=== PATIENT | male | born 1975 | race Caucasian/White ===

== ENCOUNTER → 2019-07-17 12:06 | Outpatient (CLI) | payer OTHER, MEDICAID, SELFPAY ==
[2019-07-17 13:21] LABS: Alanine Aminotransferase 149 IU/L (<50); Albumin 4.1 g/dL (3.5-5.0); Albumin Globulin Ratio 1.1 (1.0-2.8); Alkaline Phosphatase 114 U/L (38-126); Aspartate Aminotransferase 112 IU/L (17-59); BUN Creatinine Ratio 18.8 (6-22); Bilirubin Total 0.3 mg/dL (0.2-1.3); Blood Urea Nitrogen 15 mg/dL (9-20); Calcium 9.2 mg/dL (8.4-10.2); Carbon Dioxide 31 mmol/L (22-32); Chloride 100 mmol/L (98-107); Estimated Glomerular Filt Rate > 60.0 mL/min (>60); Globulin 3.6 g/dL (1.7-4.1); Glucose 118 mg/dL (70-100); HEMOLYSIS < 15 (0-50); Sodium 138 mmol/L (137-145); Total Protein 7.7 g/dL (6.3-8.2)
[2019-07-17 16:53] LABS: Hepatitis B Surface Antigen NEGATIVE s/c (NEGATIVE)
[2019-07-17 17:32] LABS: Hep C Virus Ab w/Reflex Quant REACTIVE s/c (NEGATIVE)
[2019-07-21 15:22] LABS: Hepatitis B Core Antibody Nonreactive (Nonreactive)
[2019-07-21 15:25] LABS: Hepatitis A Antibody Total Reactive (Nonreactive)
[2019-07-21 15:26] LABS: Hepatitis B Surf AB Imm QUANT 11 mIU/mL (> 9)
== END ==
PROVIDERS: Visit Provider Nurse Practitioner Family
DX: F11.20 Opioid dependence, uncomplicated (principal); Z79.899 Other long term (current) drug therapy
CPT/HCPCS: 36415; 80053; 86704; 86706; 86708; 86803; 87340; 87522

== ENCOUNTER → 2020-10-25 12:16 | Outpatient (CLI) | payer OTHER, MEDICAID, SELFPAY ==
[2020-10-25 15:40] LABS: Add Manual Diff / Slide Review NO; Basophils Absolute Auto 0 /uL (0-100); Basophils Percent Auto 0.3 % (0-2); Eosinophils Absolute Auto 500 /uL (0-450); Eosinophils Percent Auto 5.7 % (2-4); Hematocrit 37.2 % (41-53); Hemoglobin 12.4 g/dL (13.5-17.5); Lymphocytes Absolute Auto 2400 /uL (1100-4500); Lymphocytes Percent Auto 30.5 % (25-40); Mean Corpuscular HGB Conc 33.4 % (30-36); Mean Corpuscular Hemoglobin 29.6 PG (26-34); Mean Corpuscular Volume 88.6 fL (80-100); Monocytes Absolute Auto 900 /uL (0-900); Monocytes Percent Auto 10.9 % (3-14); Neutrophils Absolute Auto 4100 /uL (1500-7000); Neutrophils Percent Auto 52.6 % (50-75); Platelet Count 208 X10^3/uL (150-400); Red Cell Distribution Width 14.1 % (11.6-14.8); White Blood Cell Count 7.9 X10^3/uL (4.5-11.0)
[2020-10-25 15:52] LABS: Alanine Aminotransferase 156 IU/L (<50); Albumin 4.3 g/dL (3.5-5.0); Albumin Globulin Ratio 1.3 (1.0-2.8); Alkaline Phosphatase 70 U/L (38-126); Aspartate Aminotransferase 197 IU/L (17-59); BUN Creatinine Ratio 17.9 (6-22); Bilirubin Total 0.4 mg/dL (0.2-1.3); Blood Urea Nitrogen 15 mg/dL (9-20); Calcium 9.3 mg/dL (8.4-10.2); Carbon Dioxide 29 mmol/L (22-32); Chloride 101 mmol/L (98-107); Estimated Glomerular Filt Rate > 60.0 mL/min (>60); Globulin 3.3 g/dL (1.7-4.1); Glucose 100 mg/dL (70-100); HEMOLYSIS 37 (0-50); Potassium 3.8 mmol/L (3.4-5.1); Sodium 134 mmol/L (137-145); Total Protein 7.6 g/dL (6.3-8.2)
[2020-10-25 15:57] LABS: HEMOLYSIS < 15 (0-50); Iron 84 ug/dL (49-181)
[2020-10-25 16:08] LABS: Percent Iron Saturation 24 % (20-50); Total Iron Binding Capacity 354 ug/dL (261-462); Transferrin 259 mg/dL (206-381)
[2020-10-25 16:12] LABS: Vitamin D 25 Hydroxy (D3) 29.4 ng/mL (30.0-100.0)
[2020-10-25 16:24] LABS: Ferritin 58 ng/mL (18-464)
[2020-10-26 04:36] LABS: Hepatitis A Antibody Total Positive (Negative); Hepatitis B Core Antibody Negative (Negative); Hepatitis B Surf AB Quant 13.1 mIU/mL (Immunity>9.9)
[2020-10-26 08:30] LABS: RPR Screen Non Reactive (Non Reactive)
[2020-10-27 16:08] LABS: Hepatitis B Surface Antigen NEGATIVE s/c (NEGATIVE)
[2020-10-27 16:35] LABS: Hep C Virus Ab w/Reflex Quant REACTIVE s/c (NEGATIVE)
[2020-11-01 11:29] LABS: HCV Genotype 1a (.); HCV LOG 10 5.852 (.)
== END ==
PROVIDERS: Referring Provider Nurse Practitioner Family; Visit Provider Nurse Practitioner Family
DX: R94.8 Abnormal results of function studies of other organs and systems (principal); B18.2 Chronic viral hepatitis C; R53.81 Other malaise
CPT/HCPCS: 36415; 80053; 81596; 82306; 82728; 83540; 83550; 85025; 86592; 86704; 86706; 86708; 86803; 87340; 87522; 87902

== ENCOUNTER 2022-03-07 08:03 | Inpatient (IN) | payer OTHER, MEDICAID, SELFPAY ==
[2022-03-07] VITALS (15 sets, daily range): BP systolic 107–160; BP diastolic 63–99; PULSE 70–100; RESP 18–32; TEMP 36.3–37.1; O2SAT 91–98; BMI 30.4
--- NOTE | 2022-03-07 08:33 | DI.RAD.S_ITS ---
PROCEDURE: XR CHEST 2V INDICATIONS: SOB TECHNIQUE: 2 views of the chest were acquired. COMPARISON: [facility], , CHEST 2VW, 06/04/2013, 8:51. FINDINGS: Surgical changes and devices: None. Lungs and pleura: Consolidation in the left lung base. Small left-sided pleural fluid collection. Mediastinum: Mediastinal contours are normal. Heart size is normal. Bones and chest wall: No suspicious bony abnormalities. Soft tissues appear unremarkable. IMPRESSION: Left basilar pneumonia with small parapneumonic effusion. Recommend follow-up imaging to resolution of the left lung findings to exclude underlying neoplastic process. Dictated by: Fadia Holley MD, PhD on 03/07/2022 at 9:01 Approved by: Fadia Holley MD, PhD on 03/07/2022 at 9:02
--- NOTE | 2022-03-07 09:04 | ED.SOB ---
HPI - SOB/Dyspnea General Chief Complaint: Shortness of Breath/Dyspnea Stated Complaint: Coughing up blood Time Seen by Provider: 03/07/22 08:24 Source: patient and family Mode of arrival: Ambulatory Limitations: no limitations History of Present Illness HPI Narrative: 46-year-old male daily smoker with prior history of pneumonia and chronic pain presents from the methadone clinic and a chief complaint of shortness of breath, productive cough with bloody sputum and chest pain for the past few days. On arrival he had pulse ox of 90% on room air and was quickly placed on 3 L. he is vaccinated against COVID. He was not treated at the methadone clinic but sent here instead. He is felt feverish and chilled, but has not measured his temperature. His chest pain is sharp and stabbing and worse with cough and largely on the left side of his chest. He is had no nausea, vomiting or diarrhea. He denies any recent travel or injury in his never had a blood clot. Related Data Allergies Allergy/AdvReac Type Severity Reaction Status Date / Time No Known Allergies AdvReac Verified 03/07/22 13:26 Review of Systems Review of Systems Narrative: GENERAL: See HPI HEENT: Denies sinus pain, ear pain, sore throat, difficulty swallowing, dizziness. RESPIRATORY: See HPI CARDIOVASCULAR: See HPI GASTROINTESTINAL: Denies nausea, vomiting, abdominal pain, diarrhea, constipation, melena. : Denies dysuria, frequency, incontinence, hematuria, urinary retention. MUSCULOSKELETAL: denies weakness, joint pain, or bony pain SKIN: Denies rash, skin lesions, or other NEUROLOGIC: Denies weakness, headache, numbness, change in speech, confusion, seizures, incoordination. PSYCHIATRIC: No concerning psychosocial issues. 12 point review of systems is negative except for those stated above Patient History Medical History Drug abuse, IV Hepatitis C History of bacterial pneumonia Marijuana use Smoker Family History (Updated 03/07/22 @ 15:04 by Maria Guadalupe Finney MD) Father Cancer Social History household members: none Smoking Status: Current every day smoker Smoking Status: Current every day smoker alcohol intake frequency: holidays/special occasions only Substance Use Type: marijuana Exam Narrative Exam Narrative: GENERAL: [46] year old patient appears stated age. Well-developed patient, in mild distress. HEAD: Atraumatic. Normocephalic. EYES: Pupils equal round and reactive. Extraocular motions intact. No scleral icterus. No injection or drainage. ENT: Nose without bleeding, purulent drainage. Throat without erythema, tonsillar hypertrophy or exudate. Airway patent. NECK: Trachea midline. Non tender CARDIOVASCULAR: Regular rate and rhythm without murmurs, gallops, or rubs. RESPIRATORY: Clear to auscultation. Breath sounds equal bilaterally. No wheezes, rales, or rhonchi. GASTROINTESTINAL: Abdomen soft, non-tender, nondistended. EXTREMITIES: No edema or joint tenderness. BACK: Nontender without deformity or crepitance. No flank tenderness. NEURO: AOx3. SKIN: No rash or erythema of visible areas Initial Vital Signs Initial Vital Signs: Vital Signs Temperature 98.6 F 03/07/22 08:30 Pulse Rate 97 H 03/07/22 08:30 Respiratory Rate 18 03/07/22 08:30 Blood Pressure 129/76 03/07/22 08:30 Pulse Oximetry 94 03/07/22 08:30 Oxygen Delivery Method 03/07/22 08:30 Oxygen Flow Rate 3 03/07/22 08:30 Scores CURB-65 Confusion: No BUN >19mg/dL (>7mmol/L): No Respiratory rate greater or equal to 30: No SBP <90mmHg or DBP less or equal to 60mmHg: No Age 65 or Older: No CURB-65 Total: 0 Score 0-1 Outpatient care, Score 2 Inpt vs. Obs, Score 3 or over Inpt admit with ICU for score of 4-5 Course Orders Ordered: ED Orders 03/07/22 09:39 Arterial Blood Gas Stat Urinalysis and Microscopic Stat 03/07/22 09:49 COVID19 -Nasal RAPID/Pre-Proc Routine 03/07/22 10:02 XR chest for PICC 1V Stat 03/07/22 10:32 C-Reactive Protein Quant Stat Comprehensive Metabolic Panel Stat D Dimer Stat Lactate (Lactic Acid) Stat NT-proBNP (BNP-Adult 18+) Stat Procalcitonin Stat Troponin & CK Cardiac Panel Stat 03/07/22 14:10 Blood Culture Stat Acetaminophen (Acetaminophen 325 Mg Tablet) 650 mg PO Q6HR PRN PRN Reason: Fever Al Hydrox/Mg Hydrox/Simethicone (Mag Hydrox/Alum/Simeth 30 Ml Udc) 30 ml PO Q6HR PRN PRN Reason: Dyspepsia Bisacodyl (Bisacodyl 10 Mg Supp) 10 mg RI DAILY PRN PRN Reason: Constipation Enoxaparin Sodium (Enoxaparin 40 Mg/0.4 Ml Syringe) 40 mg SUBCUT DAILY [facility] Hydromorphone HCl (Hydromorphone 1 Mg Inj) 1 mg IV Q3H PRN PRN Reason: Pain, Moderate (4-6) Last Admin: 03/07/22 13:20 Dose: 1 mg Documented By: LARA Dextrose/Sodium Chloride (Dextrose 5%-0.9% Ns) 1,000 mls @ 100 mls/hr IV CONT ANDER Last Admin: 03/07/22 17:05 Dose: 100 mls/hr Documented By: MICHAEL Piperacillin Sod/Tazobactam (Sod 4.5 gm/ Sodium Chloride) 100 mls @ 25 mls/hr IV Q8H [facility] Last Admin: 03/07/22 17:06 Dose: 25 mls/hr Documented By: MICHAEL Vancomycin HCl/Dextrose (Vancomycin) 1,500 mg in 300 mls @ 200 mls/hr IV Q8H [facility] Nicotine (Nicotine 7 Mg Patch) 7 mg TOP DAILY [facility] Nicotine (Nicotine 21 Mg Patch) 21 mg TOP DAILY [facility] Ondansetron HCl (Ondansetron 4 Mg/2 Ml Inj) 4 mg IV Q8HR PRN PRN Reason: Nausea And Vomiting Oxycodone HCl (Oxycodone Ir 10 Mg Tablet) 10 mg PO Q4HR PRN PRN Reason: Pain, Severe (7-10) Last Admin: 03/07/22 17:04 Dose: 10 mg Documented By: MICHAEL Vancomycin HCl (Vancomycin Trough) 1 request [facility] [place] 1630 [facility] Stop: 03/08/22 16:31 Vancomycin HCl (Vancomycin Peak) 1 request [facility] [place] 1930 [facility] Stop: 03/08/22 19:31 Discontinued Medications Sodium Chloride (Normal Saline 0.9%) 1,000 mls @ 1,000 mls/hr IV BOLUS ONE Stop: 03/07/22 09:31 Last Infusion: 03/07/22 12:39 Dose: 0 mls/hr Documented By: Admin: 03/07/22 10:32 Dose: 1,000 mls/hr Documented By: NYLA(2) Ceftriaxone Sodium 2,000 mg/ (Sodium Chloride) 100 mls @ 200 mls/hr IV NOW ONE Stop: 03/07/22 09:12 Last Infusion: 03/07/22 11:06 Dose: 0 mls/hr Documented By: NYLA(2) Admin: 03/07/22 10:31 Dose: 200 mls/hr Documented By: NYLA(2) Azithromycin 500 mg/ Dextrose 250 mls @ 250 mls/hr IV NOW ONE Stop: 03/07/22 09:12 Last Infusion: 03/07/22 12:34 Dose: 0 mls/hr Documented By: Admin: 03/07/22 10:31 Dose: 250 mls/hr Documented By: NYLA(2) Sodium Chloride (Normal Saline 0.9%) 2,052 mls @ 684 mls/hr 30 ml/kg infuse over 3 hr (2052 ml) IV NOW ONE Stop: 03/07/22 14:14 Last Infusion: 03/07/22 13:04 Dose: 0 mls/hr Documented By: Admin: 03/07/22 11:46 Dose: 684 mls/hr Documented By: NYLA Vancomycin HCl (Vancomycin) 1,000 mg in 200 mls @ 200 mls/hr IV Q24H ANDER Methadone HCl (Methadone 10 Mg Tablet) 110 mg PO NOW ONE Stop: 03/07/22 09:31 Last Admin: 03/07/22 10:31 Dose: 110 mg Documented By: NYLA(2) Methadone HCl (Methadone 5 Mg Tablet) 2.5 mg PO NOW ONE Stop: 03/07/22 09:31 Last Admin: 03/07/22 10:31 Dose: 2.5 mg Documented By: NYLA(2) Nicotine (Nicotine 7 Mg Patch) 7 mg TOP NOW ONE Stop: 03/07/22 13:57 Last Admin: 03/07/22 15:29 Dose: Not Given Documented By: LARA Potassium Chloride (Potassium Chloride 20 Meq/15 Ml Udc) 40 meq PO NOW ONE Stop: 03/07/22 11:16 Last Admin: 03/07/22 11:40 Dose: 40 meq Documented By: NYLA Vital Signs Vital signs: Vital Signs - 8 hr 03/07/22 10:30 03/07/22 10:30 03/07/22 10:35 Pulse Rate 70 84 Blood Pressure 125/73 Pulse Oximetry 98 03/07/22 10:57 03/07/22 11:00 03/07/22 11:02 Pulse Rate 87 Blood Pressure 122/66 114/63 Pulse Oximetry 96 03/07/22 11:30 03/07/22 11:30 Pulse Rate 88 Blood Pressure 115/69 Pulse Oximetry 92 MDM - SOB/Dyspnea Lab Data Result diagrams: 03/07/22 08:32 03/07/22 10:32 Labs: Lab Results 03/07/22 03/07/22 03/07/22 Range/Units 08:23 08:32 09:39 WBC 17.6 H (4.5-11.0) X10^3/uL RBC 5.37 (4.5-5.9) X10^6/uL Hgb 15.7 (13.5-17.5) g/dL Hct 46.0 (41-53) % MCV 85.5 (80-100) fL MCH 29.2 (26-34) PG MCHC 34.2 (30-36) % RDW 14.5 (11.6-14.8) % Plt Count 142 L (150-400) X10^3/uL Neut % (Auto) Not Reportable Lymph % (Auto) Not Reportable [place] % (Auto) Not Reportable Eos % (Auto) Not Reportable Baso % (Auto) Not Reportable Lymph # (Auto) Not Reportable [place] # (Auto) Not Reportable Baso # (Auto) Not Reportable Total Counted 100 Seg Neutrophils % 73.0 H (38-70) % Band Neutrophils % 20.0 H (3-7) % Lymphocytes % (Manual) 3.0 L (25-45) % Atypical Lymphs % 1.0 H ( - 0) % Monocytes % (Manual) 3.0 (2-11) % Neutrophils # (Manual) 54994 H (8329-6589) /uL RBC Morphology Normal morphology D-Dimer (<230) ng/mL ABG pH 7.48 H (7.35-7.45) ABG pCO2 43.2 (35-45) mmHg ABG pO2 63 L (80-100) mmHg ABG HCO3 32 H (22-26) mmol/L ABG Total CO2 33 H (21-31) mmol/L ABG O2 Saturation 93 L (95-100) % ABG Base Excess 9.0 H (-2-2) mmol/L FiO2 32 Sodium (137-145) mmol/L Potassium (3.4-5.1) mmol/L Chloride (98-107) mmol/L Carbon Dioxide (22-32) mmol/L BUN (9-20) mg/dL Creatinine (0.66-1.25) mg/dL Estimated GFR (>60) mL/min BUN/Creatinine Ratio (6-22) Glucose (70-100) mg/dL Lactate (0.7-2.1) mmol/L Calcium (8.4-10.2) mg/dL Total Bilirubin (0.2-1.3) mg/dL AST (17-59) IU/L ALT (<50) IU/L Alkaline Phosphatase (38-126) U/L Total Creatine Kinase (55-170) U/L CK-MB (CK-2) CK-MB (CK-2) Rel Index Troponin I (0.01-0.034) ng/mL NT-Pro-B Natriuret Pep (<125) pg/mL Total Protein (6.3-8.2) g/dL Albumin (3.5-5.0) g/dL Globulin (1.7-4.1) g/dL Albumin/Globulin Ratio (1.0-2.8) Procalcitonin (<0.5) ng/mL Urine Color Urine Appearance Urine pH (4.5-8.0) Ur Specific [place] (1.000-1.035) Urine Protein (Negative) Urine Glucose (UA) (Negative) g/dL Urine Ketones (NEGATIVE) Urine Occult Blood (Negative) Urine Nitrate (Negative) Urine Bilirubin (NEGATIVE) Urine Urobilinogen (0.2) E.U./dL Ur Leukocyte Esterase (NEGATIVE) Urine RBC (0-5/HPF) Urine WBC (0-5/HPF) Urine Bacteria (None) Ur Culture Indicated? Micro UA Comment SARS-CoV-2 (PCR) Cancelled 03/07/22 03/07/22 03/07/22 Range/Units 09:39 09:49 10:32 WBC (4.5-11.0) X10^3/uL RBC (4.5-5.9) X10^6/uL Hgb (13.5-17.5) g/dL Hct (41-53) % MCV (80-100) fL MCH (26-34) PG MCHC (30-36) % RDW (11.6-14.8) % Plt Count (150-400) X10^3/uL Neut % (Auto) Lymph % (Auto) [place] % (Auto) Eos % (Auto) Baso % (Auto) Lymph # (Auto) [place] # (Auto) Baso # (Auto) Total Counted Seg Neutrophils % (38-70) % Band Neutrophils % (3-7) % Lymphocytes % (Manual) (25-45) % Atypical Lymphs % ( - 0) % Monocytes % (Manual) (2-11) % Neutrophils # (Manual) (3428-4548) /uL RBC Morphology D-Dimer 1043 H (<230) ng/mL ABG pH (7.35-7.45) ABG pCO2 (35-45) mmHg ABG pO2 (80-100) mmHg ABG HCO3 (22-26) mmol/L ABG Total CO2 (21-31) mmol/L ABG O2 Saturation (95-100) % ABG Base Excess (-2-2) mmol/L FiO2 Sodium (137-145) mmol/L Potassium (3.4-5.1) mmol/L Chloride (98-107) mmol/L Carbon Dioxide (22-32) mmol/L BUN (9-20) mg/dL Creatinine (0.66-1.25) mg/dL Estimated GFR (>60) mL/min BUN/Creatinine Ratio (6-22) Glucose (70-100) mg/dL Lactate (0.7-2.1) mmol/L Calcium (8.4-10.2) mg/dL Total Bilirubin (0.2-1.3) mg/dL AST (17-59) IU/L ALT (<50) IU/L Alkaline Phosphatase (38-126) U/L Total Creatine Kinase (55-170) U/L CK-MB (CK-2) CK-MB (CK-2) Rel Index Troponin I (0.01-0.034) ng/mL NT-Pro-B Natriuret Pep (<125) pg/mL Total Protein (6.3-8.2) g/dL Albumin (3.5-5.0) g/dL Globulin (1.7-4.1) g/dL Albumin/Globulin Ratio (1.0-2.8) Procalcitonin (<0.5) ng/mL Urine Color Yellow Urine Appearance Clear Urine pH 6.5 (4.5-8.0) Ur Specific [place] 1.020 (1.000-1.035) Urine Protein 2+ H (Negative) Urine Glucose (UA) Trace H (Negative) g/dL Urine Ketones Negative (NEGATIVE) Urine Occult Blood Trace-lysed (Negative) Urine Nitrate Negative (Negative) Urine Bilirubin Negative (NEGATIVE) Urine Urobilinogen 2.0 H (0.2) E.U./dL Ur Leukocyte Esterase Negative (NEGATIVE) Urine RBC None seen (0-5/HPF) Urine WBC None seen (0-5/HPF) Urine Bacteria None seen (None) Ur Culture Indicated? Cult not indicated Micro UA Comment Microscopic normal SARS-CoV-2 (PCR) Negative 03/07/22 03/07/22 03/07/22 Range/Units 10:32 10:32 10:32 WBC (4.5-11.0) X10^3/uL RBC (4.5-5.9) X10^6/uL Hgb (13.5-17.5) g/dL Hct (41-53) % MCV (80-100) fL MCH (26-34) PG MCHC (30-36) % RDW (11.6-14.8) % Plt Count (150-400) X10^3/uL Neut % (Auto) Lymph % (Auto) [place] % (Auto) Eos % (Auto) Baso % (Auto) Lymph # (Auto) [place] # (Auto) Baso # (Auto) Total Counted Seg Neutrophils % (38-70) % Band Neutrophils % (3-7) % Lymphocytes % (Manual) (25-45) % Atypical Lymphs % ( - 0) % Monocytes % (Manual) (2-11) % Neutrophils # (Manual) (0066-6681) /uL RBC Morphology D-Dimer (<230) ng/mL ABG pH (7.35-7.45) ABG pCO2 (35-45) mmHg ABG pO2 (80-100) mmHg ABG HCO3 (22-26) mmol/L ABG Total CO2 (21-31) mmol/L ABG O2 Saturation (95-100) % ABG Base Excess (-2-2) mmol/L FiO2 Sodium 131 L (137-145) mmol/L Potassium 3.1 L (3.4-5.1) mmol/L Chloride 90 L (98-107) mmol/L Carbon Dioxide 32 (22-32) mmol/L BUN 16 (9-20) mg/dL Creatinine 0.69 (0.66-1.25) mg/dL Estimated GFR > 60 (>60) mL/min BUN/Creatinine Ratio 23.2 H (6-22) Glucose 128 H (70-100) mg/dL Lactate 2.3 H (0.7-2.1) mmol/L Calcium 8.6 (8.4-10.2) mg/dL Total Bilirubin 0.9 (0.2-1.3) mg/dL AST 30 (17-59) IU/L ALT 31 (<50) IU/L Alkaline Phosphatase 104 (38-126) U/L Total Creatine Kinase 33 L (55-170) U/L CK-MB (CK-2) TNP CK-MB (CK-2) Rel Index TNP Troponin I < 0.012 (0.01-0.034) ng/mL NT-Pro-B Natriuret Pep 92 (<125) pg/mL Total Protein 7.0 (6.3-8.2) g/dL Albumin 3.5 (3.5-5.0) g/dL Globulin 3.5 (1.7-4.1) g/dL Albumin/Globulin Ratio 1.0 (1.0-2.8) Procalcitonin 22.1 H (<0.5) ng/mL Urine Color Urine Appearance Urine pH (4.5-8.0) Ur Specific [place] (1.000-1.035) Urine Protein (Negative) Urine Glucose (UA) (Negative) g/dL Urine Ketones (NEGATIVE) Urine Occult Blood (Negative) Urine Nitrate (Negative) Urine Bilirubin (NEGATIVE) Urine Urobilinogen (0.2) E.U./dL Ur Leukocyte Esterase (NEGATIVE) Urine RBC (0-5/HPF) Urine WBC (0-5/HPF) Urine Bacteria (None) Ur Culture Indicated? Micro UA Comment SARS-CoV-2 (PCR) Imaging Data Chest x-ray: Radiologist's Impression: [address] [place] [address] XRay Report Signed Patient: Panda Purdy MR#: [id number] : 1975 Acct:[id number] Age/Sex: 46 / M Date of Service: 03/07/22 Loc: ED Accession Number: [id number] ?? Procedure: XR chest 2V Ordering Provider: Ubaldo Harris D.O. PROCEDURE:? XR CHEST 2V ? INDICATIONS:? SOB ? TECHNIQUE:? 2 views of the chest were acquired.? ? COMPARISON:? [facility], , CHEST 2VW, 06/04/2013, 8:51. ? FINDINGS:? ? Surgical changes and devices:? None.? ? Lungs and pleura:? Consolidation in the left lung base.? Small left-sided pleural fluid collection. ? Mediastinum:? Mediastinal contours are normal.? Heart size is normal.? ? Bones and chest wall:? No suspicious bony abnormalities.? Soft tissues appear unremarkable.? ? IMPRESSION:? Left basilar pneumonia with small parapneumonic effusion.? Recommend follow-up imaging to resolution of the left lung findings to exclude underlying neoplastic process. ? ? Dictated by: Fadia Holley MD, PhD on 03/07/2022 at 9:01 ? ? Approved by: Fadia Holley MD, PhD on 03/07/2022 at 9:02 ? [facility] Narrative Medical decision making narrative: 46-year-old male smoker presents with chest pain hemoptysis and shortness of breath, he is found to be hypoxemic with resting pulse ox of 90% on room air which improves with 3 L by nasal cannula. ABG notes PO2 of 63 on 3 L. Chest x-ray demonstrates left lower lobe pneumonia, patient has elevated white blood cell count and elevated lactate. Patient requires hospitalization for ongoing evaluation, treatment and stabilization of his illness. Discharge Plan Departure Patient Disposition: Admitted As Inpatient Clinical Impression: Left lower lobe pneumonia, Hypoxemia, Acute hypokalemia Admit Date/Time: 03/07/22 11:50 Admit Provider: Maria Guaadlupe Finney
[2022-03-07 10:00] LABS: PCO2 ABG 43.2 mmHg (35-45); pH ABG 7.48 (7.35-7.45)
[2022-03-07 10:01] LABS: HCO3 ABG 32 mmol/L (22-26); PO2 ABG 63 mmHg (80-100); TCO2 ABG 33 mmol/L (21-31)
[2022-03-07 10:02] LABS: Fractionated Inspired Oxygen 32; Oxygen Saturation ABG 93 % (95-100)
--- NOTE | 2022-03-07 10:02 | DI.RAD.S_ITS ---
PROCEDURE: XR CHEST FOR PICC 1V INDICATIONS: picc COMPARISON: [facility], CR, XR CHEST 2V, 03/07/2022, 8:28. FINDINGS: PICC was placed by the intravenous therapy team from the right side. Fluoroscopic spot film demonstrates the tip of PICC projecting to the area of mid SVC. Consolidation in the left lung base and small left-sided pleural fluid collection is stable compared to prior exam. IMPRESSION: Tip of PICC projects to the area of mid SVC. Dictated by: Fadia Holley MD, PhD on 03/07/2022 at 10:43 Approved by: Fadia Holley MD, PhD on 03/07/2022 at 10:43
[2022-03-07 10:14] LABS: COVID19 -Nasal RAPID Negative (Negative)
[2022-03-07] MEDS: AZITHROMYCIN 500 MG in DEXTROSE 5% IN WATER 250 ML 250 MG IV (10:31)
[2022-03-07] MEDS: cefTRIAXone 2,000 MG in SODIUM CHLORIDE 0.9% 100 ML 200 MG IV (10:31)
[2022-03-07] MEDS: METHADONE 5 MG TABLET 2.5 MG PO (10:31)
[2022-03-07] MEDS: METHADONE 10 MG TABLET 110 MG PO (10:31)
[2022-03-07] MEDS: SODIUM CHLORIDE 0.9% 1,000 ML 1000 ML IV (10:32)
[2022-03-07 10:43] LABS: Appearance Urine UA CLEAR; Bilirubin Urine UA NEGATIVE (NEGATIVE); Color Urine UA YELLOW; Glucose Urine UA TRACE g/dL (Negative); Ketones Urine UA NEGATIVE (NEGATIVE); Leukocyte Esterase Urine UA NEGATIVE (NEGATIVE); Nitrite Urine UA NEGATIVE (Negative); Occult Blood Urine UA TRACE-LYSED (Negative); Protein Urine UA 2+ (Negative); pH Urine UA 6.5 (4.5-8.0)
[2022-03-07 10:50] LABS: Bacteria Urine None Seen; Culture Indicated Urine Cult Not Indicated; RBC Urine None Seen (0-5/HPF); Urine Comments Microscopic Normal; WBC Urine None Seen (0-5/HPF)
[2022-03-07 11:00] LABS: Alanine Aminotransferase 31 IU/L (<50); Albumin 3.5 g/dL (3.5-5.0); Alkaline Phosphatase 104 U/L (38-126); Aspartate Aminotransferase 30 IU/L (17-59); BUN Creatinine Ratio 23.2 (6-22); Bilirubin Total 0.9 mg/dL (0.2-1.3); Blood Urea Nitrogen 16 mg/dL (9-20); Calcium 8.6 mg/dL (8.4-10.2); Carbon Dioxide 32 mmol/L (22-32); Chloride 90 mmol/L (98-107); Creatine Kinase 33 U/L (55-170); Estimated Glomerular Filt Rate > 60 mL/min (>60); Globulin 3.5 g/dL (1.7-4.1); Glucose 128 mg/dL (70-100); HEMOLYSIS < 15 (0-50); Lactate (Lactic Acid) 2.3 mmol/L (0.7-2.1); Potassium 3.1 mmol/L (3.4-5.1); Sodium 131 mmol/L (137-145)
[2022-03-07 11:04] LABS: D Dimer 1043 ng/mL (<230)
[2022-03-07 11:07] LABS: Hemoglobin 15.7 g/dL (13.5-17.5); Mean Corpuscular HGB Conc 34.2 % (30-36); Mean Corpuscular Hemoglobin 29.2 PG (26-34); Mean Corpuscular Volume 85.5 fL (80-100); Platelet Count 142 X10^3/uL (150-400); Red Blood Cell Count 5.37 X10^6/uL (4.5-5.9); Red Cell Distribution Width 14.5 % (11.6-14.8); White Blood Cell Count 17.6 X10^3/uL (4.5-11.0)
[2022-03-07 11:09] LABS: Add Manual Diff / Slide Review YES
[2022-03-07 11:12] LABS: NT-proBNP (BNP-Adult 18+) 92 pg/mL (<125); Troponin I < 0.012 ng/mL (0.01-0.034)
[2022-03-07 11:16] LABS: Procalcitonin 22.1 ng/mL (<0.5)
[2022-03-07 11:19] LABS: Neutrophils Absolute Manual 16368 /uL (3000-5900); RBC Morphology Normal Morphology; Total Cells Counted 100
[2022-03-07] MEDS: POTASSIUM CHLORIDE 20 MEQ/15 ML UDC 40 MEQ PO (11:40)
[2022-03-07] MEDS: SODIUM CHLORIDE 0.9% 2,052 ML 684 ML IV (11:46)
[2022-03-07 12:45] LABS: Reflexed Lactate in 2 Hours Y
--- NOTE | 2022-03-07 13:07 | DI.CT.S_ITS ---
PROCEDURE: CT ANGIO CHEST PE PROTOCOL INDICATIONS: chest pain hypoxia TECHNIQUE: After the administration of intravenous contrast, 2 mm thick sections acquired from the pulmonary apices to the posterior costophrenic angles. 3-dimensional maximum intensity projection (MIP) coronal and sagittal reformats were then acquired through the thorax. For radiation dose reduction, the following was used: automated exposure control, adjustment of mA and/or kV according to patient size. COMPARISON: [facility], CT, CHEST WITH CONTRAST, 06/11/2013, 13:53. [facility], CT, CT ABD PELVIS W CON, 05/11/2015, 12:42. FINDINGS: Image quality: Excellent. Pulmonary arteries: Pulmonary arteries are normal in size, and demonstrate no intraluminal filling defects to suggest central pulmonary embolism. Lungs and pleura: There is dense consolidation seen involving the majority of the left lower lobe. The proximal left lower lobe bronchus appears narrowed versus occluded. There is a small left-sided pleural effusion. The right lung appears clear. No pneumothorax is seen on either side. Mediastinum: Heart size is normal, without pericardial effusion. Enlarged mediastinal lymph nodes are seen, including an 18 x 13 mm subcarinal lymph node. Thoracic aorta is normal in caliber and enhancement. Esophagus is normal in caliber. There is a small hiatal hernia. Bones and chest wall: No suspicious bony lesions. Ribs and thoracic spine appear intact throughout. Age-appropriate bony degenerative changes are seen. Thyroid gland demonstrates no significant abnormality. No axillary or supraclavicular adenopathy. Abdomen: Incidental note is made of an accessory splenule along the hilum of the primary spleen. Visualized upper abdominal solid organs appear normal in the early arterial phase of enhancement. IMPRESSION: Negative for pulmonary embolism. Dense consolidation is seen involving the left lower lobe, with a narrowed versus partially occluded left lower lobe bronchus proximally. Enlarged mediastinal lymph nodes are seen, which are most likely reactive. Incidental note is made of: Small hiatal hernia Accessory splenule Dictated by: Keith Washington M.D. on 03/07/2022 at 13:02 Approved by: Keith Washington M.D. on 03/07/2022 at 13:06
[2022-03-07] MEDS: HYDROMORPHONE 1 MG INJ IV ×2 (13:20→21:11)
[2022-03-07 14:30] LABS: Lactate 2HR (Lactic Acid Rflx) 2.8 mmol/L (0.7-2.1)
--- NOTE | 2022-03-07 14:51 | P.HP_ITS ---
History of Present Illness History of Present Illness Date Patient Seen: 03/07/22 Time Patient Seen: 14:51 Chief complaint: Coughing up blood Narrative: The patient is a 46-year-old male with a history of IV substance abuse, hepatitis-C, current 22 pack year history of tobacco/nicotine dependence who presents to the hospital with abrupt onset of shortness of breath, cough, productive sputum with hemoptysis. The patient states his symptoms began 2 days ago. Cause of his worsening shortness of breath and cough he presented for evaluation. He does have a history of bacterial pneumonia about 7 years ago. He denies any nausea vomiting or diarrhea. He has had some chest pain associated with his cough. He has had no hematemesis melena or bright red blood per rectum. Patient denies any weight loss. He does report some night sweats. He had a PICC line placed in the ED. Patient reports significant chest pain since then. He underwent Chest Xray which confirmed Left Lower lobe consoidation. Patient had a CT of the Chest which demonstrated the following findgs: There is dense consolidation seen involving the majority of the left lower lobe.? The proximal left lower lobe bronchus appears narrowed versus occluded.? There is a small left-sided pleural effusion.? The right lung appears clear.? No pneumothorax is seen on either side. Patient is admitted for complicated Left Lower lobe Pneumonia, Respiratory Failure, and Nicotine dependence. Patient History Medical History Drug abuse, IV Hepatitis C History of bacterial pneumonia Marijuana use Smoker Family & Social History Family History (Updated 03/07/22 @ 15:04 by Maria Guadalupe Finney MD) Father Cancer Social History: household members none Prior Living Arrangements House Safety & Behavioral: Feels Safe in Current Yes Environment Been Physically Hurt or No Threatened By a Person Tobacco & Substance use: Tobacco type cigarettes,cannabis/marijuana Smoking Status Current every day smoker Smoking packs per day 0.5 alcohol intake frequency holiday/special occasion Substance Use Type marijuana Comment: 22 pack year history of smoking Meds Home Medications and Allergies Allergies Allergy/AdvReac Type Severity Reaction Status Date / Time No Known Allergies AdvReac Verified 03/07/22 13:26 Review of Systems Review of Systems Narrative: Cough, productive phlegm, hemoptysis, shortness of breath, chest pain, generalized malaise. further 10 point review of system is negative Exam Vital Signs (past 8 hours): - 03/07/22 08:30 03/07/22 09:36 03/07/22 10:00 Temperature 98.6 F Pulse Rate 97 H 96 H Respiratory Rate 18 Blood Pressure 129/76 119/70 Pulse Oximetry 94 91 Oxygen Delivery Method Nasal Cannula Oxygen Flow Rate 3 03/07/22 10:00 03/07/22 10:30 03/07/22 10:30 Temperature Pulse Rate 90 70 Respiratory Rate Blood Pressure 125/73 Pulse Oximetry 95 Oxygen Delivery Method Oxygen Flow Rate 03/07/22 10:35 03/07/22 10:57 03/07/22 11:00 Temperature Pulse Rate 84 Respiratory Rate Blood Pressure 122/66 114/63 Pulse Oximetry 98 Oxygen Delivery Method Oxygen Flow Rate 03/07/22 11:02 03/07/22 11:30 03/07/22 11:30 Temperature Pulse Rate 87 88 Respiratory Rate Blood Pressure 115/69 Pulse Oximetry 96 92 Oxygen Delivery Method Oxygen Flow Rate 03/07/22 12:00 03/07/22 12:00 03/07/22 12:30 Temperature Pulse Rate 85 Respiratory Rate Blood Pressure 107/66 115/68 Pulse Oximetry 97 Oxygen Delivery Method Oxygen Flow Rate 03/07/22 12:30 Temperature Pulse Rate 81 Respiratory Rate Blood Pressure Pulse Oximetry 97 Oxygen Delivery Method Nasal Cannula Oxygen Flow Rate 4 Oxygen Delivery Method Nasal Cannula Oxygen Flow Rate 4 Narrative Exam Narrative: Ill appearing male lying in bed uncomfortable HENMT Other: NC/AT, PERRL, EOMI, Neck is supple without adenopathy Resp Other: Decreased breath sounds, scattered rhonchi in the right lung field Cardio Other: Cardiac exam: Regular rate rhythm normal S1-S2 GI Other: Abdomen: Soft nontender nondistended, had a splenomegaly no palpable masses, no rebound tenderness Other: No edema Neuro Other: Nonfocal Objective Labs Result Diagrams: 03/07/22 08:32 03/07/22 10:32 Labs: Laboratory Results - last 24 hr 03/07/22 03/07/22 03/07/22 08:23 08:32 09:39 WBC 17.6 H RBC 5.37 Hgb 15.7 Hct 46.0 MCV 85.5 MCH 29.2 MCHC 34.2 RDW 14.5 Plt Count 142 L Neut % (Auto) Not Reportable Lymph % (Auto) Not Reportable [place] % (Auto) Not Reportable Eos % (Auto) Not Reportable Baso % (Auto) Not Reportable Lymph # (Auto) Not Reportable [place] # (Auto) Not Reportable Baso # (Auto) Not Reportable Total Counted 100 Seg Neutrophils % 73.0 H Band Neutrophils % 20.0 H Lymphocytes % (Manual) 3.0 L Atypical Lymphs % 1.0 H Monocytes % (Manual) 3.0 Neutrophils # (Manual) 86598 H RBC Morphology Normal morphology D-Dimer ABG pH 7.48 H ABG pCO2 43.2 ABG pO2 63 L ABG HCO3 32 H ABG Total CO2 33 H ABG O2 Saturation 93 L ABG Base Excess 9.0 H FiO2 32 Sodium Potassium Chloride Carbon Dioxide BUN Creatinine Estimated GFR BUN/Creatinine Ratio Glucose Lactate Calcium Total Bilirubin AST ALT Alkaline Phosphatase Total Creatine Kinase CK-MB (CK-2) CK-MB (CK-2) Rel Index Troponin I NT-Pro-B Natriuret Pep Total Protein Albumin Globulin Albumin/Globulin Ratio Procalcitonin Urine Color Urine Appearance Urine pH Ur Specific [place] Urine Protein Urine Glucose (UA) Urine Ketones Urine Occult Blood Urine Nitrate Urine Bilirubin Urine Urobilinogen Ur Leukocyte Esterase Urine RBC Urine WBC Urine Bacteria Ur Culture Indicated? Micro UA Comment SARS-CoV-2 (PCR) Cancelled 03/07/22 03/07/22 03/07/22 09:39 09:49 10:32 WBC RBC Hgb Hct MCV MCH MCHC RDW Plt Count Neut % (Auto) Lymph % (Auto) [place] % (Auto) Eos % (Auto) Baso % (Auto) Lymph # (Auto) [place] # (Auto) Baso # (Auto) Total Counted Seg Neutrophils % Band Neutrophils % Lymphocytes % (Manual) Atypical Lymphs % Monocytes % (Manual) Neutrophils # (Manual) RBC Morphology D-Dimer 1043 H ABG pH ABG pCO2 ABG pO2 ABG HCO3 ABG Total CO2 ABG O2 Saturation ABG Base Excess FiO2 Sodium Potassium Chloride Carbon Dioxide BUN Creatinine Estimated GFR BUN/Creatinine Ratio Glucose Lactate Calcium Total Bilirubin AST ALT Alkaline Phosphatase Total Creatine Kinase CK-MB (CK-2) CK-MB (CK-2) Rel Index Troponin I NT-Pro-B Natriuret Pep Total Protein Albumin Globulin Albumin/Globulin Ratio Procalcitonin Urine Color Yellow Urine Appearance Clear Urine pH 6.5 Ur Specific [place] 1.020 Urine Protein 2+ H Urine Glucose (UA) Trace H Urine Ketones Negative Urine Occult Blood Trace-lysed Urine Nitrate Negative Urine Bilirubin Negative Urine Urobilinogen 2.0 H Ur Leukocyte Esterase Negative Urine RBC None seen Urine WBC None seen Urine Bacteria None seen Ur Culture Indicated? Cult not indicated Micro UA Comment Microscopic normal SARS-CoV-2 (PCR) Negative 03/07/22 03/07/22 03/07/22 10:32 10:32 10:32 WBC RBC Hgb Hct MCV MCH MCHC RDW Plt Count Neut % (Auto) Lymph % (Auto) [place] % (Auto) Eos % (Auto) Baso % (Auto) Lymph # (Auto) [place] # (Auto) Baso # (Auto) Total Counted Seg Neutrophils % Band Neutrophils % Lymphocytes % (Manual) Atypical Lymphs % Monocytes % (Manual) Neutrophils # (Manual) RBC Morphology D-Dimer ABG pH ABG pCO2 ABG pO2 ABG HCO3 ABG Total CO2 ABG O2 Saturation ABG Base Excess FiO2 Sodium 131 L Potassium 3.1 L Chloride 90 L Carbon Dioxide 32 BUN 16 Creatinine 0.69 Estimated GFR > 60 BUN/Creatinine Ratio 23.2 H Glucose 128 H Lactate 2.3 H Calcium 8.6 Total Bilirubin 0.9 AST 30 ALT 31 Alkaline Phosphatase 104 Total Creatine Kinase 33 L CK-MB (CK-2) TNP CK-MB (CK-2) Rel Index TNP Troponin I < 0.012 NT-Pro-B Natriuret Pep 92 Total Protein 7.0 Albumin 3.5 Globulin 3.5 Albumin/Globulin Ratio 1.0 Procalcitonin 22.1 H Urine Color Urine Appearance Urine pH Ur Specific [place] Urine Protein Urine Glucose (UA) Urine Ketones Urine Occult Blood Urine Nitrate Urine Bilirubin Urine Urobilinogen Ur Leukocyte Esterase Urine RBC Urine WBC Urine Bacteria Ur Culture Indicated? Micro UA Comment SARS-CoV-2 (PCR) 03/07/22 14:10 WBC RBC Hgb Hct MCV MCH MCHC RDW Plt Count Neut % (Auto) Lymph % (Auto) [place] % (Auto) Eos % (Auto) Baso % (Auto) Lymph # (Auto) [place] # (Auto) Baso # (Auto) Total Counted Seg Neutrophils % Band Neutrophils % Lymphocytes % (Manual) Atypical Lymphs % Monocytes % (Manual) Neutrophils # (Manual) RBC Morphology D-Dimer ABG pH ABG pCO2 ABG pO2 ABG HCO3 ABG Total CO2 ABG O2 Saturation ABG Base Excess FiO2 Sodium Potassium Chloride Carbon Dioxide BUN Creatinine Estimated GFR BUN/Creatinine Ratio Glucose Lactate 2.8 H Calcium Total Bilirubin AST ALT Alkaline Phosphatase Total Creatine Kinase CK-MB (CK-2) CK-MB (CK-2) Rel Index Troponin I NT-Pro-B Natriuret Pep Total Protein Albumin Globulin Albumin/Globulin Ratio Procalcitonin Urine Color Urine Appearance Urine pH Ur Specific [place] Urine Protein Urine Glucose (UA) Urine Ketones Urine Occult Blood Urine Nitrate Urine Bilirubin Urine Urobilinogen Ur Leukocyte Esterase Urine RBC Urine WBC Urine Bacteria Ur Culture Indicated? Micro UA Comment SARS-CoV-2 (PCR) Assessment & Plan Assessment & Plan narrative: 46-year-old male with a history of IV substance abuse, chronically on methadone, history of 22 pack-year history of smoking, admitted to the hospital with acute left lower lobe pneumonia, and associated acute respiratory failure * Patient presents with acute hypoxic respiratory failure * Chest x-ray and CT of the chest confirmed left lower lobe dense consolidation * CT reveals narrowing of the bronchus, versus an occluded left lower lobe bronchus, this is concerning for possible postobstructive pneumonia, due to malignancy * Patient is at high risk given his 22 pack-year history of smoking, no evidence to suggest aspiration * Will continue Zosyn and vancomycin at this time, will obtain a MRSA swab of the nares and if negative will discontinue vanco * Will continue oxygen, will repeat chest x-ray in 2-3 days, if improving will continue to follow and obtain a repeat CT as an outpatient * In the event the patient does not make significant improvement will need to repeat CT earlier, and he may require bronchoscopy if no significant improvement or worsening pulmonary symptoms Nicotine dependence, with evidence of withdrawal * Will it initiate Nicoderm patch History of opioid dependence * Will continue methadone at 112 mg daily * Will use as needed IV Dilaudid for breakthrough pain Patient will be placed on Lovenox for DVT prophylaxis Patient indicates he is a full code will note that his record accordingly Patient does not have durable power of associate attorney, however he does report a, Yanely ?close friend would make decisions on his behalf Patient will be admitted as an inpatient Time Spent With Patient Critical Care time: I spent a total of [] minutes of critical care time on this patient's care today; this time is exclusive of procedural time. Quality VTE Deep Vein Thrombosis/Pulmonary Embolism Present on Admission: No
[2022-03-07] MEDS: OXYCODONE IR 10 MG TABLET PO (17:04)
[2022-03-07] MEDS: DEXTROSE 5%-0.9% NS 1,000 ML 100 ML IV (17:05)
[2022-03-07] MEDS: PIPERACILLIN/TAZO 4.5 GM in SODIUM CHLORIDE 0.9% 100 ML IV (17:06)
[2022-03-07] MEDS: VANCOMYCIN 1,500 MG/300 ML PIGGYBACK 200 MG IV (20:06)
[2022-03-07 21:39] LABS: C-Reactive Protein Quant 8.3 mg/dL (<1.0)
[2022-03-08] VITALS (7 sets, daily range): BP systolic 117–131; BP diastolic 67–72; PULSE 63–82; RESP 18–20; TEMP 36.2–36.9; O2SAT 95–99
[2022-03-08] MEDS: PIPERACILLIN/TAZO 4.5 GM in SODIUM CHLORIDE 0.9% 100 ML IV ×2 (00:47→09:24)
[2022-03-08] MEDS: VANCOMYCIN 1,500 MG/300 ML PIGGYBACK 200 MG IV (00:55)
[2022-03-08 02:59] LABS: Acinetobacter baumannii Not Detected (Not Detect); Candida albicans Not Detected (Not Detect); Candida glabrata Not Detected (Not Detect); Candida krusei Not Detected (Not Detect); Candida parapsilosis Not Detected (Not Detect); Candida tropicalis Not Detected (Not Detect); E. coli Not Detected (Not Detect); Enterobacter cloacae complex Not Detected (Not Detect); Enterobacteriaceae species Not Detected (Not Detect); Enterococcus species Not Detected (Not Detect); Haemophilus influenzae Not Detected (Not Detect); Listeria monocytogenes Not Detected (Not Detect); Neisseria meningitidis Not Detected (Not Detect); Proteus species Not Detected (Not Detect); Pseudomonas aeruginosa Not Detected (Not Detect); Serratia marcescens Not Detected (Not Detect); Staphylococcus species Not Detected (Not Detect); Streptococcus agalactiae (Gr B Not Detected (Not Detect); Streptococcus pneumonia Detected (Not Detect); Streptococcus pyogenes (Gr A) Not Detected (Not Detect); Streptococcus species Detected (Not Detect)
[2022-03-08] MEDS: OXYCODONE IR 10 MG TABLET PO ×2 (04:15→11:32)
--- NOTE | 2022-03-08 05:18 | PC.NURSE ---
Shift note; Patient is alert and orientedx4, follows commands, no signs of distress, with O2 support by nasal cannula at 4lpm, vital signs are stable and within acceptable limits. Has episodes of body aches, due pain meds given. Active bowel tones, no BM. Patient uses urinal with adequate yellowish urine output. Will continue to monitor.
[2022-03-08] MEDS: HYDROMORPHONE 1 MG INJ IV (07:02)
[2022-03-08 07:07] LABS: Add Manual Diff / Slide Review NO; Basophils Absolute Auto 0 /uL (0-100); Basophils Percent Auto 0.1 % (0-2); Eosinophils Absolute Auto 100 /uL (0-450); Eosinophils Percent Auto 0.9 % (2-4); Hematocrit 32.5 % (41-53); Hemoglobin 11.1 g/dL (13.5-17.5); Lymphocytes Absolute Auto 1100 /uL (1100-4500); Lymphocytes Percent Auto 7.9 % (25-40); Mean Corpuscular HGB Conc 34.1 % (30-36); Mean Corpuscular Hemoglobin 29.4 PG (26-34); Monocytes Absolute Auto 1000 /uL (0-900); Monocytes Percent Auto 6.9 % (3-14); Neutrophils Absolute Auto 11700 /uL (1500-7000); Neutrophils Percent Auto 84.2 % (50-75); Platelet Count 183 X10^3/uL (150-400); Red Blood Cell Count 3.78 X10^6/uL (4.5-5.9); Red Cell Distribution Width 14.3 % (11.6-14.8); White Blood Cell Count 13.9 X10^3/uL (4.5-11.0)
[2022-03-08 07:17] LABS: BUN Creatinine Ratio 18.2 (6-22); Blood Urea Nitrogen 12 mg/dL (9-20); Calcium 8.3 mg/dL (8.4-10.2); Carbon Dioxide 30 mmol/L (22-32); Chloride 99 mmol/L (98-107); Estimated Glomerular Filt Rate > 60 mL/min (>60); Glucose 122 mg/dL (70-100); HEMOLYSIS < 15 (0-50); Potassium 3.1 mmol/L (3.4-5.1); Sodium 133 mmol/L (137-145)
[2022-03-08 07:41] LABS: Procalcitonin 15.9 ng/mL (<0.5)
[2022-03-08] MEDS: NICOTINE 21 MG PATCH TOP (09:25)
[2022-03-08] MEDS: ENOXAPARIN 40 MG/0.4 ML SYRINGE SUBCUT (09:25)
[2022-03-08] MEDS: POTASSIUM CHLORIDE 20 MEQ TAB 40 MEQ PO ×2 (09:26→16:38)
[2022-03-08] MEDS: NICOTINE 7 MG PATCH TOP (09:26)
--- NOTE | 2022-03-08 11:56 | CM.DANOTE ---
Initial DCP Assessment Note Pt is a 46 yo male, resident of [facility] Narrative: The patient is a 46-year-old male with a history of IV substance abuse, hepatitis-C, current 22 pack year history of tobacco/nicotine dependence who presents to the hospital with abrupt onset of shortness of breath, cough, productive sputum with hemoptysis PCP: Unknown Payer: Vladimir/YOSELYN Reviewed chart, met w/patient to introduce self and role, patient appeared agitated so this was a brief visit. Patient denies needs from this [employer], states he has access to basic needs ie housing, food. plan: DC expected home upon DC, transport TBD, likely friend. CM team will plan to follow closely in case any DC needs or concerns arise JODY Jacobo Discharge Planning/Care Management CM Discharge Assessment Start: 03/08/22 11:51 Freq: Status: Active Protocol: Document 03/08/22 11:51 [place] (Rec: 03/08/22 11:56 [place] [id number]) Discharge Planning Assessment Assigned Medical Screener JODY Flores DPOA/Assigned Designee Name brittanie Ellison Contact Information [phone] Advance Directives? No Advance Directives on File No History Provided By Patient Prior Living Arrangements House Household Members none Type of transporation used prior to Drives own vehicle admit Independent with ADL's Yes Is patient alert and oriented? Yes Barriers to Discharge No Discharge Plan Home Transportation Arrangement Friend Referrals Initiated None needed
--- NOTE | 2022-03-08 12:53 | P.PN_ITS ---
Subjective Subjective Date Patient Seen: 03/08/22 Interval history: 46 y/o male admitted for pneumonia. He reports persistant cough and chest pain. He has no shortness of breath but feels poorly Exam Vital Signs (past 8 hours): - 03/08/22 08:00 03/08/22 12:00 Temperature 97.7 F 98.4 F Pulse Rate 68 65 Respiratory Rate 20 18 Blood Pressure 117/70 131/71 Pulse Oximetry 97 99 Oxygen Flow Rate 0 0 Oxygen Delivery Method Nasal Cannula Oxygen Flow Rate 0 Narrative Exam Narrative: ill appearing male lying in bed Resp Other: Lungs: decreased breath sounds with left lower lobe rhonchi Cardio Other: CV: RRR nl Sl S2 GI Other: Abd: soft/ non tender/ non distended Extrem Other: no edema Objective Labs Result Diagrams: 03/08/22 06:48 03/08/22 06:48 Labs: Laboratory Results - last 24 hr 03/07/22 03/07/22 03/07/22 10:32 10:32 14:10 WBC RBC Hgb Hct MCV MCH MCHC RDW Plt Count Neut % (Auto) Lymph % (Auto) [place] % (Auto) Eos % (Auto) Baso % (Auto) Neut # (Auto) Lymph # (Auto) [place] # (Auto) Eos # (Auto) Baso # (Auto) Sodium Potassium Chloride Carbon Dioxide BUN Creatinine Estimated GFR BUN/Creatinine Ratio Glucose Lactate 2.8 H Calcium C-Reactive Protein 8.3 H Procalcitonin A. baumannii (PCR) Not detected Zulma albicans (PCR) Not detected C. glabrata (PCR) Not detected C. krusei (PCR) Not detected C. parapsilosis (PCR) Not detected C. tropicalis (PCR) Not detected Enterobacteriac sp PCR Not detected E. cloacae complex PCR Not detected Enterococcus sp PCR Not detected E. coli (PCR) Not detected H. influenzae (PCR) Not detected Klebsiella oxytoca PCR Not detected Klebsiella pneumoniae Not detected List. monocytogenes PCR Not detected N. meningitidis (PCR) Not detected Proteus species (PCR) Not detected Serratia marcescens PCR Not detected Staphylococcus sp PCR Not detected Staph aureus (PCR) Not detected mecA-Methicil Res Gene Not Reportable Streptococcus sp PCR Detected H Group A Strep (PCR) Not detected Strep agalactiae (PCR) Not detected Strep pneumoniae (PCR) Detected H P. aeruginosa (PCR) Not detected Naseem/B-Vanco Res Genes Not Reportable KPC-Carbap Res Gene PCR Not Reportable 03/08/22 03/08/22 03/08/22 06:48 06:48 06:48 WBC 13.9 H RBC 3.78 L Hgb 11.1 L Hct 32.5 L MCV 86.0 MCH 29.4 MCHC 34.1 RDW 14.3 Plt Count 183 Neut % (Auto) 84.2 H Lymph % (Auto) 7.9 L [place] % (Auto) 6.9 Eos % (Auto) 0.9 L Baso % (Auto) 0.1 Neut # (Auto) 85029 H Lymph # (Auto) 1100 [place] # (Auto) 1000 H Eos # (Auto) 100 Baso # (Auto) 0 Sodium 133 L Potassium 3.1 L Chloride 99 Carbon Dioxide 30 BUN 12 Creatinine 0.66 Estimated GFR > 60 BUN/Creatinine Ratio 18.2 Glucose 122 H Lactate Calcium 8.3 L C-Reactive Protein Procalcitonin 15.9 H A. baumannii (PCR) Zulma albicans (PCR) C. glabrata (PCR) C. krusei (PCR) C. parapsilosis (PCR) C. tropicalis (PCR) Enterobacteriac sp PCR E. cloacae complex PCR Enterococcus sp PCR E. coli (PCR) H. influenzae (PCR) Klebsiella oxytoca PCR Klebsiella pneumoniae List. monocytogenes PCR N. meningitidis (PCR) Proteus species (PCR) Serratia marcescens PCR Staphylococcus sp PCR Staph aureus (PCR) mecA-Methicil Res Gene Streptococcus sp PCR Group A Strep (PCR) Strep agalactiae (PCR) Strep pneumoniae (PCR) P. aeruginosa (PCR) Naseem/B-Vanco Res Genes KPC-Carbap Res Gene PCR [facility] Medical History Drug abuse, IV Hepatitis C History of bacterial pneumonia Marijuana use Smoker Family History (Updated 03/07/22 @ 15:04 by Maria Guadalupe Finney MD) Father Cancer Social History household members: none Smoking Status: Current every day smoker Assessment & Plan Assessment & Plan narrative: 46-year-old male with a history of IV substance abuse, chronically on methadone, history of 22 pack-year history of smoking, admitted to the hospital with acute left lower lobe pneumonia, and associated acute respiratory failure * Patient presents with acute hypoxic respiratory failure * Chest x-ray and CT of the chest confirmed left lower lobe dense consolidation * CT reveals narrowing of the bronchus, versus an occluded left lower lobe bronchus, this is concerning for possible postobstructive pneumonia, due to malignancy * Patient is at high risk given his 22 pack-year history of smoking, no evidence to suggest aspiration * Will continue Zosyn and vancomycin at this time, will obtain a MRSA swab of the nares and if negative will discontinue vanco * Will continue oxygen, will repeat chest x-ray in 2-3 days, if improving will continue to follow and obtain a repeat CT as an outpatient * In the event the patient does not make significant improvement will need to repeat CT earlier, and he may require bronchoscopy if no significant improvement or worsening pulmonary symptomsNicotine dependence, with evidence of withdrawal * Will it initiate Nicoderm patchHistory of opioid dependence * Will continue methadone at 112 mg daily * Will use as needed IV Dilaudid for breakthrough painPatient will be placed on Lovenox for DVT prophylaxis * Patient growing strep pneumonia, will d/c IV dilaudid and try oral pain medications * Will repeat Chest Xray tomorrow, if no improvement consider repeat chest CT * patient may require bronchoscopy if no improvement * Will D/c Zosyn, start Unasyn, D/c Vanco given strep pneumonia Patient indicates he is a full code will note that his record accordingly Patient does not have durable power of document review attorney, however he does report a, Yanely ?close friend ?would make decisions on his behalf Patient will be admitted as an inpatient Time Spent With Patient Critical Care time: I spent a total of [] minutes of critical care time on this patient's care today; this time is exclusive of procedural time. Quality VTE Deep Vein Thrombosis/Pulmonary Embolism Present on Admission: No
[2022-03-08] MEDS: AMPICILLIN/SULBACTAM 3 GM 3 GM in SODIUM CHLORIDE 0.9% 100 ML IV ×2 (13:53→19:38)
[2022-03-08] MEDS: OXYCODONE ER 10 MG TAB 20 MG PO ×2 (15:11→21:09)
[2022-03-08] MEDS: ACETAMINOPHEN 325 MG TABLET 650 MG PO (15:12)
[2022-03-08] MEDS: METHADONE 10 MG TABLET 110 MG PO (16:21)
[2022-03-08] MEDS: METHADONE 5 MG TABLET 2.5 MG PO (16:21)
[2022-03-08] MEDS: SODIUM CHLORIDE 0.9% FLUSH 10 ML IV ×2 (19:51→21:11)
[2022-03-09] VITALS: BP 122/70; PULSE 65; RESP 20; TEMP 36.7; O2SAT 97
[2022-03-09] MEDS: AMPICILLIN/SULBACTAM 3 GM 3 GM in SODIUM CHLORIDE 0.9% 100 ML IV ×3 (01:17→12:19)
[2022-03-09] MEDS: SODIUM CHLORIDE 0.9% FLUSH 10 ML IV ×4 (01:18→20:04)
[2022-03-09] MEDS: OXYCODONE IR 10 MG TABLET PO ×4 (01:25→21:40)
[2022-03-09] MEDS: ACETAMINOPHEN 325 MG TABLET 650 MG PO ×2 (01:26→17:46)
[2022-03-09 04:00] VITALS: BP 119/70; PULSE 64; RESP 20; TEMP 36.7; O2SAT 99
[2022-03-09 06:20] LABS: Add Manual Diff / Slide Review NO; Basophils Absolute Auto 0 /uL (0-100); Basophils Percent Auto 0.1 % (0-2); Eosinophils Absolute Auto 200 /uL (0-450); Eosinophils Percent Auto 2.1 % (2-4); Hemoglobin 10.8 g/dL (13.5-17.5); Lymphocytes Absolute Auto 900 /uL (1100-4500); Lymphocytes Percent Auto 10.5 % (25-40); Mean Corpuscular HGB Conc 33.7 % (30-36); Mean Corpuscular Hemoglobin 29.1 PG (26-34); Mean Corpuscular Volume 86.4 fL (80-100); Monocytes Absolute Auto 1300 /uL (0-900); Monocytes Percent Auto 15.1 % (3-14); Neutrophils Absolute Auto 6400 /uL (1500-7000); Neutrophils Percent Auto 72.2 % (50-75); Platelet Count 203 X10^3/uL (150-400); Red Blood Cell Count 3.71 X10^6/uL (4.5-5.9); Red Cell Distribution Width 14.3 % (11.6-14.8); White Blood Cell Count 8.9 X10^3/uL (4.5-11.0)
[2022-03-09 07:01] LABS: BUN Creatinine Ratio 20.6 (6-22); Blood Urea Nitrogen 13 mg/dL (9-20); Calcium 8.2 mg/dL (8.4-10.2); Carbon Dioxide 33 mmol/L (22-32); Chloride 99 mmol/L (98-107); Estimated Glomerular Filt Rate > 60 mL/min (>60); Glucose 94 mg/dL (70-100); HEMOLYSIS < 15 (0-50); Potassium 3.2 mmol/L (3.4-5.1); Sodium 136 mmol/L (137-145)
[2022-03-09 07:14] LABS: Procalcitonin 9.14 ng/mL (<0.5)
--- NOTE | 2022-03-09 07:33 | PC.NURSE ---
Called son Karl to bring his dad prostate ca. medication Xtandi & give to Gumaro RN to get it identified with Pharmacist.
[2022-03-09 08:00] VITALS: BP 127/77; PULSE 61; RESP 20; TEMP 36.8; O2SAT 100
[2022-03-09] MEDS: METHADONE 10 MG TABLET 110 MG PO (08:23)
[2022-03-09] MEDS: METHADONE 5 MG TABLET 2.5 MG PO (08:25)
[2022-03-09] MEDS: OXYCODONE ER 10 MG TAB 20 MG PO ×2 (08:26→20:03)
[2022-03-09] MEDS: NICOTINE 21 MG PATCH TOP (08:27)
[2022-03-09] MEDS: NICOTINE 7 MG PATCH TOP (08:28)
[2022-03-09] MEDS: ENOXAPARIN 40 MG/0.4 ML SYRINGE SUBCUT (08:28)
[2022-03-09 12:00] VITALS: BP 120/73; PULSE 71; RESP 18; TEMP 36.7; O2SAT 97
[2022-03-09] MEDS: POTASSIUM CHLORIDE 20 MEQ TAB 40 MEQ PO ×2 (12:06→17:47)
--- NOTE | 2022-03-09 14:32 | DIET.CONS ---
Dietary Consultation Note Admission Date: 03/07/2022 11:50 Assessment: 46 y/o M admitted with acute left lower lob pneumonia and acute respiratory failure. RD consulted for assessed as high risk. PMH of IV substance abuse. Denies any wt loss. Denies issues with PO or access to food. States he just wants to sleep and not participate in assessment. Reported UBW indicates no wt loss. Endorses two meals per day: steak and potatoes or teriyaki chicken or fast food. Eats like a normal person. Ht: 172.72 cm Wt: 90.718 kg BMI: 30.4 UBW: 88.6kg (reported) Last BM: 03/06/22 (03/07/22 13:05) MNA: 10 James Score: 22 Diet: 03/07/22 Dinner Heart Healthy Diet Diet Modifications: Nutrition Percent Meal Consumed 75% 03/09/22 13:14 Percent Meal Consumed 0% 03/08/22 16:00 Percent Meal Consumed 100% 03/08/22 08:50 Labs: RBC 3.71 X10^6/uL (4.5-5.9) L 03/09/22 05:20 Hgb 10.8 g/dL (13.5-17.5) L 03/09/22 05:20 Hct 32.0 % (41-53) L 03/09/22 05:20 Creatinine 0.63 mg/dL (0.66-1.25) L 03/09/22 05:20 Lactate 2.8 mmol/L (0.7-2.1) H 03/07/22 14:10 NT-Pro-B Natriuret Pep 92 pg/mL (<125) 03/07/22 10:32 Monitoring/Evaluations: consult prn Electronically Signed by: Maddy Fischer 03/09/22 14:32 Clinical Dietitian [id number] [place] [address]
[2022-03-09 16:00] VITALS: BP 123/80; PULSE 66; RESP 17; TEMP 36.9; O2SAT 98
--- NOTE | 2022-03-09 17:10 | P.PN_ITS ---
Subjective Subjective Date Patient Seen: 03/09/22 Interval history: 46 y/o male admitted with severe left lower lobe pneumonia. Overall he feels like he is making improvement. He continues to have cough with productive sputum. He also continues to have chest pain. Exam Vital Signs (past 8 hours): - 03/09/22 12:00 03/09/22 16:00 Temperature 98.0 F 98.4 F Pulse Rate 71 66 Respiratory Rate 18 17 Blood Pressure 120/73 123/80 Pulse Oximetry 97 98 Oxygen Flow Rate 0 0 Oxygen Delivery Method Room Air Oxygen Flow Rate 0 Narrative Exam Narrative: ill appearing male lying in bed Resp Other: Lungs: decreased breath sounds bilaterally with scattered rhonchi over the left lung space Cardio Other: RRR nl sl S2 GI Other: Abd: soft/ non tender/ nondistended Extrem Other: no edema Objective Labs Result Diagrams: 03/09/22 05:20 03/09/22 05:20 Labs: Laboratory Results - last 24 hr 03/09/22 03/09/22 03/09/22 05:20 05:20 05:20 WBC 8.9 RBC 3.71 L Hgb 10.8 L Hct 32.0 L MCV 86.4 MCH 29.1 MCHC 33.7 RDW 14.3 Plt Count 203 Neut % (Auto) 72.2 Lymph % (Auto) 10.5 L [place] % (Auto) 15.1 H Eos % (Auto) 2.1 Baso % (Auto) 0.1 Neut # (Auto) 6400 Lymph # (Auto) 900 L [place] # (Auto) 1300 H Eos # (Auto) 200 Baso # (Auto) 0 Sodium 136 L Potassium 3.2 L Chloride 99 Carbon Dioxide 33 H BUN 13 Creatinine 0.63 L Estimated GFR > 60 BUN/Creatinine Ratio 20.6 Glucose 94 Calcium 8.2 L Procalcitonin 9.14 H PFSH Medical History Drug abuse, IV Hepatitis C History of bacterial pneumonia Marijuana use Smoker Family History (Updated 03/07/22 @ 15:04 by Maria Guadalupe Finney MD) Father Cancer Social History household members: none Smoking Status: Current every day smoker Assessment & Plan Assessment & Plan narrative: 46-year-old male with a history of IV substance abuse, chronically on methadone, history of 22 pack-year history of smoking, admitted to the hospital with acute left lower lobe pneumonia, and associated acute respiratory failure * Patient presents with acute hypoxic respiratory failure * Chest x-ray and CT of the chest confirmed left lower lobe dense consolidation * CT reveals narrowing of the bronchus, versus an occluded left lower lobe bronchus, this is concerning for possible postobstructive pneumonia, due to malignancy * Patient is at high risk given his 22 pack-year history of smoking, no evidence to suggest aspiration * Will continue Zosyn and vancomycin at this time, will obtain a MRSA swab of the nares and if negative will discontinue vanco * Will continue oxygen, will repeat chest x-ray in 2-3 days, if improving will continue to follow and obtain a repeat CT as an outpatient * In the event the patient does not make significant improvement will need to repeat CT earlier, and he may require bronchoscopy if no significant improvement or worsening pulmonary symptomsNicotine dependence, with evidence of withdrawal * Will it initiate Nicoderm patchHistory of opioid dependence * Will continue methadone at 112 mg daily * Will use as needed IV Dilaudid for breakthrough painPatient will be placed on Lovenox for DVT prophylaxis * Patient growing strep pneumonia, will d/c IV dilaudid and try oral pain medications * Will repeat Chest Xray tomorrow, if no improvement consider repeat chest CT * patient may require bronchoscopy if no improvement * Will D/c Zosyn, start Unasyn, D/c Vanco given strep pneumonia, per pharmacy will narrow to ceftriaxone 2 grams daily * repeat Chest Xray * follow procalcitonin * May need repeat Chest CT in a few days, if improving likely can discharge home on 10 days antibiotics * Patient indicates he is a full code will note that his record accordingly Patient does not have durable power of attorney at law, however he does report a, Yanely ?close friend ?would make decisions on his behalf Patient will be admitted as an inpatient Time Spent With Patient Critical Care time: I spent a total of [] minutes of critical care time on this patient's care today; this time is exclusive of procedural time. Quality VTE Deep Vein Thrombosis/Pulmonary Embolism Present on Admission: No
--- NOTE | 2022-03-09 17:24 | DI.RAD.S_ITS ---
PROCEDURE: XR CHEST 2V INDICATIONS: f/u pneumonia TECHNIQUE: 2 views of the chest were acquired. COMPARISON: [facility], , XR CHEST 2V, 03/07/2022, 8:28. FINDINGS: Surgical changes and devices: None. Lungs and pleura: Small left pleural effusion, only slightly larger than the previous exam No pleural effusions or pneumothorax. Mediastinum: Mediastinal contours are normal. Heart size is normal. Bones and chest wall: No suspicious bony abnormalities. Soft tissues appear unremarkable. IMPRESSION: Small left pleural effusion, slightly larger than prior study. Dictated by: Zoltan Dangelo M.D. on 03/09/2022 at 18:19 Approved by: Zoltan Dangelo M.D. on 03/09/2022 at 18:19
[2022-03-09] MEDS: cefTRIAXone 2,000 MG in SODIUM CHLORIDE 0.9% 100 ML 200 MG IV (17:44)
[2022-03-09 20:23] VITALS: BP 119/73; PULSE 65; RESP 16; TEMP 35.9; O2SAT 97
[2022-03-10] MEDS: OXYCODONE IR 10 MG TABLET PO ×3 (05:19→12:15)
[2022-03-10 05:31] VITALS: BP 119/76; PULSE 64; RESP 16; TEMP 36.2; O2SAT 95
[2022-03-10 05:51] LABS: Magnesium 1.6 mg/dL (1.6-2.3)
[2022-03-10 05:55] LABS: Add Manual Diff / Slide Review NO; Basophils Absolute Auto 100 /uL (0-100); Basophils Percent Auto 0.6 % (0-2); Eosinophils Absolute Auto 300 /uL (0-450); Eosinophils Percent Auto 2.8 % (2-4); Hemoglobin 11.7 g/dL (13.5-17.5); Lymphocytes Absolute Auto 1200 /uL (1100-4500); Lymphocytes Percent Auto 13.7 % (25-40); Mean Corpuscular HGB Conc 34.5 % (30-36); Mean Corpuscular Hemoglobin 29.6 PG (26-34); Mean Corpuscular Volume 85.9 fL (80-100); Monocytes Absolute Auto 1600 /uL (0-900); Monocytes Percent Auto 17.9 % (3-14); Neutrophils Absolute Auto 5900 /uL (1500-7000); Platelet Count 235 X10^3/uL (150-400); Red Blood Cell Count 3.96 X10^6/uL (4.5-5.9); Red Cell Distribution Width 14.6 % (11.6-14.8); White Blood Cell Count 9.1 X10^3/uL (4.5-11.0)
[2022-03-10 06:03] LABS: BUN Creatinine Ratio 25.4 (6-22); Blood Urea Nitrogen 15 mg/dL (9-20); Calcium 8.2 mg/dL (8.4-10.2); Carbon Dioxide 32 mmol/L (22-32); Chloride 99 mmol/L (98-107); Estimated Glomerular Filt Rate > 60 mL/min (>60); Glucose 102 mg/dL (70-100); HEMOLYSIS < 15 (0-50); Potassium 3.8 mmol/L (3.4-5.1); Sodium 136 mmol/L (137-145)
[2022-03-10] MEDS: OXYCODONE ER 10 MG TAB 20 MG PO ×2 (07:59→20:13)
[2022-03-10] MEDS: METHADONE 5 MG TABLET 2.5 MG PO (07:59)
[2022-03-10] MEDS: METHADONE 10 MG TABLET 110 MG PO (07:59)
[2022-03-10 08:00] VITALS: BP 128/79; PULSE 65; RESP 18; TEMP 36.2; O2SAT 94
[2022-03-10] MEDS: ENOXAPARIN 40 MG/0.4 ML SYRINGE SUBCUT (08:00)
[2022-03-10] MEDS: NICOTINE 21 MG PATCH TOP (08:00)
[2022-03-10] MEDS: SODIUM CHLORIDE 0.9% FLUSH 10 ML IV ×2 (08:05→20:15)
[2022-03-10 12:00] VITALS: BP 120/74; PULSE 67; RESP 17; TEMP 36; O2SAT 95
[2022-03-10] MEDS: guaiFENesin ER 600 MG TAB 1200 MG PO ×2 (12:15→20:12)
[2022-03-10 15:59] VITALS: BP 121/88; PULSE 69; RESP 16; TEMP 36.5; O2SAT 97
--- NOTE | 2022-03-10 16:09 | PM.PN.1 ---
Subjective Subjective Date Patient Seen: 03/10/22 Interval history: 46-year-old gentleman with history of IV drug abuse, it is, and 22 pack year history of tobacco abuse who was admitted with left lower lobe pneumonia with associated hemoptysis. Patient reports he is feeling better overall, but notes that he continues to have significant pain. He is coughing up primarily pinkish sputum. However, while I was in the room he expectorated yellow sputum mixed with some pink tinged blood. He reports no current shortness of breath. His primary issue is pain particularly with coughing or taking a deep breath. He also has these periodic hiccups which worsen his discomfort. He is on chronic opiate therapy with methadone 112.5 mg daily. Since admission, he was placed on OxyContin 20 mg b.i.d. as well as oxycodone 10 mg q.4 hours. He feels this has not been enough to help his pain enough that he feels comfortable attempting to cough and deep breathe. Exam Vital Signs (past 8 hours): - 03/10/22 12:00 03/10/22 15:59 Temperature 96.8 F L 97.7 F Pulse Rate 67 69 Respiratory Rate 17 16 Blood Pressure 120/74 121/88 Pulse Oximetry 95 97 Oxygen Flow Rate 0 0 Oxygen Delivery Method Room Air Oxygen Flow Rate 0 Narrative Exam Narrative: GEN: Alert and oriented x 3, appears uncomfortable HEENT:NC, Face symmetric CHEST: Respiratory excursions symmetric, diffusely diminished breath sounds to the left lung throughout CV: RRR, no M/R/G ABD: Soft, NT/ND, BT present in all 4 quadrants, no organomegaly or masses EXTR: warm, well perfused, no C/C/, trace bilateral ankle edema SKIN: warm and dry, no rash NEURO: Alert and oriented x 3, nonfocal Objective Labs Result Diagrams: 03/10/22 05:39 03/10/22 05:39 Labs: Laboratory Results - last 24 hr 03/10/22 03/10/22 03/10/22 05:39 05:39 05:39 WBC 9.1 RBC 3.96 L Hgb 11.7 L Hct 34.0 L MCV 85.9 MCH 29.6 MCHC 34.5 RDW 14.6 Plt Count 235 Neut % (Auto) 65.0 Lymph % (Auto) 13.7 L [place] % (Auto) 17.9 H Eos % (Auto) 2.8 Baso % (Auto) 0.6 Neut # (Auto) 5900 Lymph # (Auto) 1200 [place] # (Auto) 1600 H Eos # (Auto) 300 Baso # (Auto) 100 Sodium 136 L Potassium 3.8 Chloride 99 Carbon Dioxide 32 BUN 15 Creatinine 0.59 L Estimated GFR > 60 BUN/Creatinine Ratio 25.4 H Glucose 102 H Calcium 8.2 L Magnesium 1.6 Procalcitonin 03/10/22 05:39 WBC RBC Hgb Hct MCV MCH MCHC RDW Plt Count Neut % (Auto) Lymph % (Auto) [place] % (Auto) Eos % (Auto) Baso % (Auto) Neut # (Auto) Lymph # (Auto) [place] # (Auto) Eos # (Auto) Baso # (Auto) Sodium Potassium Chloride Carbon Dioxide BUN Creatinine Estimated GFR BUN/Creatinine Ratio Glucose Calcium Magnesium Procalcitonin 6.70 H PFSH Medical History Drug abuse, IV Hepatitis C History of bacterial pneumonia Marijuana use Smoker Family History (Updated 03/07/22 @ 15:04 by Maria Guadalupe Finney MD) Father Cancer Social History household members: none Smoking Status: Current every day smoker Assessment & Plan Assessment & Plan narrative: 1. Left lower lobe pneumonia with small pleural effusion Patient is having difficulty expectorating. Work on pulmonary hygiene. Encouraged use of a flutter valve and spirometer. I have also asked him to ambulate the halls 3 times daily. Will add Mucinex to help thin secretions. Discussed the risk of his pleural effusion growing, becoming a parapneumonic effusion and/or empyema. Will continue close monitoring. Presently he remains on Rocephin as culture was positive for strep pneumo from his bloodstream. 2. Strep pneumonia bacteremia Initial culture revealed strep pneumonia. Will obtain follow-up cultures to ensure he has cleared. 3. Possible partially occluded left lower lobe bronchus Given his tobacco use history, certainly he is at higher risk for malignancy. Advise that he needs to have his infection cleared before additional imaging can be obtained to further assess. If his clinical symptoms worsen, he will require transfer and bronchoscopy further diagnostic information. 4. Polysubstance dependence He is presently on a methadone program. Continue methadone 112.5 mg daily. 5. Pleuritic chest pain Will increase oxycodone from 10 mg Q 4 as needed To 20 mg Q 4 as needed. 6. Nicotine dependence Continue nicotine patch Code status Full Prophylaxis Continue Lovenox Disposition Home discharge Time Spent With Patient Critical Care time: I spent a total of [] minutes of critical care time on this patient's care today; this time is exclusive of procedural time. Quality VTE Deep Vein Thrombosis/Pulmonary Embolism Present on Admission: No
[2022-03-10] MEDS: OXYCODONE IR 10 MG TABLET 20 MG PO ×2 (16:24→20:16)
[2022-03-10] MEDS: cefTRIAXone 2,000 MG in SODIUM CHLORIDE 0.9% 100 ML 200 MG IV (17:24)
--- NOTE | 2022-03-10 19:32 | PC.NURSE ---
tolerated OOB to shower today. percussion to LLL to break up thick congestion. MD ordered mucinex, this has been helpful, noted to be coughing more at end of shift. sputum remains blood tinged, greenish, thick. IS and flutter provided, education given, much encouragement to use these items. 2 lumen picc flushes, one port did not drawback blood. heparinized, and now gives blood. tolerating rocephin IV. appetite is fair. prn oxycodone increased to 20mg Q4hour PRN. facial grimacing, splinting w/ deep breathing, more obvious on inspiratory breaths. RA. report to SHARI Mazariegos.
[2022-03-10 20:33] VITALS: BP 127/78; PULSE 70; RESP 18; TEMP 36.8; O2SAT 95
[2022-03-11] MEDS: OXYCODONE IR 10 MG TABLET 20 MG PO ×4 (00:36→17:24)
--- NOTE | 2022-03-11 05:46 | P.PN_ITS ---
Subjective Subjective Date Patient Seen: 03/11/22 Interval history: 46-year-old gentleman with history of IV drug abuse, Hepatitis C, and 22 pack year history of tobacco abuse who was admitted with left lower lobe pneumonia with associated hemoptysis. Patient reports he feels improved again today. No further hemoptysis. He states it is easier to expectorate his sputum and describes it is being thinner and yellow. He has been able to get up and move a bit more and has ambulated the halls. He is using his flutter valve. He is not using his spirometer as frequently but is able to get it up to approximately 1200 cc. He continues to have periodic hiccups which worsen his discomfort.? He is on chronic opiate therapy with methadone 112.5 mg daily.? Since admission, he was placed on OxyContin 20 mg b.i.d. as well as oxycodone 10 mg q.4 hours.? He states since his oxycodone was increased from 10-20 mg q.4 hours he feels his pain is ?spot on ?. He is not requesting his diet be changed from her healthy to a regular diet so he can have velazquez. Exam Vital Signs (past 8 hours): Oxygen Delivery Method Room Air Oxygen Flow Rate 0 Narrative Exam Narrative: GEN: Alert and oriented x 3, appears more comfortable today, improved color HEENT:NC, Face symmetric CHEST: Respiratory excursions symmetric, improved breath sounds to the left upp er lung field, persistent diminished breath sounds to the lower half, clear on the right CV: RRR, no M/R/G ABD: Soft, NT/ND, BT present in all 4 quadrants, no organomegaly or masses EXTR: warm, well perfused, no C/C/, trace bilateral ankle edema SKIN: warm and dry, no rash NEURO: Alert and oriented x 3, nonfocal Objective Labs Result Diagrams: 03/10/22 05:39 03/10/22 05:39 Labs: Laboratory Results - last 24 hr 03/10/22 03/10/22 03/10/22 05:39 05:39 05:39 WBC 9.1 RBC 3.96 L Hgb 11.7 L Hct 34.0 L MCV 85.9 MCH 29.6 MCHC 34.5 RDW 14.6 Plt Count 235 Neut % (Auto) 65.0 Lymph % (Auto) 13.7 L [place] % (Auto) 17.9 H Eos % (Auto) 2.8 Baso % (Auto) 0.6 Neut # (Auto) 5900 Lymph # (Auto) 1200 [place] # (Auto) 1600 H Eos # (Auto) 300 Baso # (Auto) 100 Sodium 136 L Potassium 3.8 Chloride 99 Carbon Dioxide 32 BUN 15 Creatinine 0.59 L Estimated GFR > 60 BUN/Creatinine Ratio 25.4 H Glucose 102 H Calcium 8.2 L Magnesium 1.6 Procalcitonin 03/10/22 05:39 WBC RBC Hgb Hct MCV MCH MCHC RDW Plt Count Neut % (Auto) Lymph % (Auto) [place] % (Auto) Eos % (Auto) Baso % (Auto) Neut # (Auto) Lymph # (Auto) [place] # (Auto) Eos # (Auto) Baso # (Auto) Sodium Potassium Chloride Carbon Dioxide BUN Creatinine Estimated GFR BUN/Creatinine Ratio Glucose Calcium Magnesium Procalcitonin 6.70 H PFSH Medical History Drug abuse, IV Hepatitis C History of bacterial pneumonia Marijuana use Smoker Family History (Updated 03/07/22 @ 15:04 by Maria Guadalupe Finney MD) Father Cancer Social History household members: none Smoking Status: Current every day smoker Assessment & Plan Assessment & Plan narrative: 1. Left lower lobe pneumonia with small pleural effusion Patient is expect rating much more easily today. No further hemoptysis. Continuing good pulmonary hygiene with frequent use of the flutter valve and spirometer. He is ambulating the halls without difficulty. Continues on b.i.d. Mucinex. Remains on Rocephin as blood culture was positive for strep pneumo. Sputum culture was not sent. Will plan to reimage him in the next 24 hours to reassess his pleural effusion to ensure he does not need thoracentesis to evaluate for parapneumonic effusion. 2. Strep pneumonia bacteremia Initial culture revealed strep pneumonia.? Will obtain follow-up cultures to ensure he has cleared. 3. Possible partially occluded left lower lobe bronchus Given his tobacco use history, certainly he is at higher risk for malignancy.? Advise that he needs to have his infection cleared before additional imaging can be obtained to further assess.? If his clinical symptoms worsen, he will require transfer and bronchoscopy further diagnostic information. 4. Polysubstance dependence He is presently on a methadone program.? Continue methadone 112.5 mg daily. 5. Pleuritic chest pain Improved with the adjustment to the as needed oxycodone 6. Nicotine dependence Continue nicotine patch Code status Full Prophylaxis Continue Lovenox Disposition Home discharge Time Spent With Patient Critical Care time: I spent a total of [] minutes of critical care time on this patient's care today; this time is exclusive of procedural time. Quality VTE Deep Vein Thrombosis/Pulmonary Embolism Present on Admission: No
[2022-03-11 06:12] VITALS: BP 126/67; PULSE 71; RESP 16; TEMP 36.7; O2SAT 94
[2022-03-11 08:00] VITALS: BP 121/74; PULSE 73; RESP 17; TEMP 36.2
[2022-03-11] MEDS: ENOXAPARIN 40 MG/0.4 ML SYRINGE SUBCUT (08:15)
[2022-03-11] MEDS: METHADONE 5 MG TABLET 2.5 MG PO (08:16)
[2022-03-11] MEDS: guaiFENesin ER 600 MG TAB 1200 MG PO ×2 (08:16→20:55)
[2022-03-11] MEDS: METHADONE 10 MG TABLET 110 MG PO (08:16)
[2022-03-11] MEDS: OXYCODONE ER 10 MG TAB 20 MG PO ×2 (08:17→20:56)
[2022-03-11] MEDS: NICOTINE 21 MG PATCH TOP (08:18)
[2022-03-11] MEDS: SODIUM CHLORIDE 0.9% FLUSH 10 ML IV ×2 (08:34→20:56)
[2022-03-11 12:00] VITALS: BP 127/82; PULSE 87; RESP 18; TEMP 35.9; O2SAT 95
--- NOTE | 2022-03-11 15:31 | CM.DPC ---
DCP Cont: Discussed patient during team rounds. Patient is not yet medically stable, secondary to his pneumonia. Plan is for patient to return home when he is deemed medically stable. P: DCP to continue to follow needs. Plan is home when medically stable. Dania Daniel RN/[facility]
[2022-03-11 15:53] VITALS: BP 126/73; PULSE 76; RESP 17; TEMP 36.2; O2SAT 94
[2022-03-11] MEDS: cefTRIAXone 2,000 MG in SODIUM CHLORIDE 0.9% 100 ML 200 MG IV (17:23)
--- NOTE | 2022-03-11 18:53 | PC.NURSE ---
improved breathing today, more productive cough. sputum is yellowish, thin and no blood noted. encouraged to continue IS/flutter, walk hallways. 2lumen picc flushes well, draws blood. blood cultures drawn via picc and sent. awaiting results. yeast in sputum: declines treatment for this. encourgaged patient to have good oral hygiene, has broken teeth and has not brushed yet since admission. pain controlled via routine methadone, oxycontin and oxycodone PRN. reports pain at 9-10/10 at rest, no facial grimace, no moaning, appears to be comfortable. appetite is improved, eating large meals and family member is bringing in food and snacks. diet changed from HH to general today. anticipate d/c later this week.
[2022-03-11 20:00] VITALS: BP 121/82; PULSE 82; RESP 18; TEMP 36.6; O2SAT 97
[2022-03-11 23:23] VITALS: BP 126/64; PULSE 80; RESP 18; TEMP 36.1; O2SAT 95
--- NOTE | 2022-03-11 23:45 | PC.NURSE ---
Patient is alert and oriented. Breath sounds diminished throughout and respirations are shallow; RA sat is 95%. Declines use of continuous oximetry. Patient reports cough productive of variety of color sputum but none seen by this RN. HRR. Denies nausea. BT present and had BM earlier this shift. Denies dysuria, frequency or urgency with urination. Is independent with mobility and steady on feet. Refuses use of SCD's so reminded to ankle wave. Complained of 9/10 back/chest pain due to cough earlier this shift and was medicated with Methadone and scheduled oxycodone ER and has been able to sleep. Fall risk score is moderate but alarm not in use at this time because of independence.
[2022-03-12] MEDS: OXYCODONE IR 10 MG TABLET 20 MG PO ×3 (02:20→22:10)
--- NOTE | 2022-03-12 07:00 | DI.RAD.S_ITS ---
PROCEDURE: XR CHEST 2V INDICATIONS: F/u pneumonia, eval pleural effusion TECHNIQUE: 2 views of the chest were acquired. COMPARISON: [facility], CR, XR CHEST 2V, 03/07/2022, 8:28. [facility], CR, XR CHEST 2V, 03/09/2022, 17:16. FINDINGS: Surgical changes and devices: Right upper extremity PICC is unchanged in positioning. Lungs and pleura: Stable appearance of small left pleural effusion with associated left basilar consolidation. No new airspace disease identified. No pneumothorax. Mediastinum: Mediastinal contours are normal. Heart size is normal. Bones and chest wall: No suspicious bony abnormalities. Soft tissues appear unremarkable. IMPRESSION: Stable appearance of small left pleural effusion and left basilar consolidation compatible with pneumonia and concurrent compressive atelectasis. Dictated by: Mc Tobin M.D. on 03/12/2022 at 10:40 Approved by: Mc Tobin M.D. on 03/12/2022 at 10:42
[2022-03-12] MEDS: METHADONE 5 MG TABLET 2.5 MG PO (08:23)
[2022-03-12] MEDS: OXYCODONE ER 10 MG TAB 20 MG PO ×2 (08:24→20:33)
[2022-03-12] MEDS: ENOXAPARIN 40 MG/0.4 ML SYRINGE SUBCUT (08:25)
[2022-03-12] MEDS: METHADONE 10 MG TABLET 110 MG PO (08:25)
[2022-03-12] MEDS: guaiFENesin ER 600 MG TAB 1200 MG PO ×2 (08:26→20:33)
[2022-03-12] MEDS: NICOTINE 21 MG PATCH TOP (08:26)
[2022-03-12] MEDS: SODIUM CHLORIDE 0.9% FLUSH 10 ML IV ×3 (08:27→22:10)
[2022-03-12 08:48] VITALS: BP 114/66; PULSE 80; RESP 23; TEMP 36.1; O2SAT 93
[2022-03-12 11:18] VITALS: BP 120/71; PULSE 76; RESP 18; TEMP 36.1; O2SAT 96
--- NOTE | 2022-03-12 11:19 | DI.CT.S_ITS ---
PROCEDURE: CT CHEST WO CON INDICATIONS: Reassess pneumonia and bronchial narrowing TECHNIQUE: Noncontrast 5 mm thick sections acquired from the pulmonary apices to the posterior costophrenic angles. 1 mm lung window, 5 mm thick coronal and sagittal and 7 mm axial MIP reformats were then acquired. For radiation dose reduction, the following was used: automated exposure control, adjustment of mA and/or kV according to patient size. COMPARISON: [facility], CT, CT ANGIO CHEST PE PROTOCOL, 03/07/2022, 13:46. [facility], CR, XR CHEST 2V, 03/09/2022, 17:16. [facility], CR, XR CHEST 2V, 03/12/2022, 8:36. FINDINGS: Image quality: Excellent. Lungs and pleura: There is left lower lobe infiltrate and consolidation consistent with pneumonia. Compared to 03/07/2022, there is improvement. Small left pleural effusion is present. No pneumothorax. Central and peripheral airways are patent and normal in caliber. There are a couple of nodules in the right upper lobe. Nodule 1: 4 mm; series 3, image 62. Nodule 2: 6 mm; series 3, image 65. Mediastinum: Heart size is normal. No pericardial effusion. Mildly enlarged mediastinal lymph nodes are noted measuring up to 1 cm in short axis. Thoracic aorta and central pulmonary arteries are normal in size. Esophagus is normal in caliber. Small hiatal hernia. Bones and chest wall: No suspicious bony lesions. No vertebral body compression fractures. There are old left 6th and 7th rib fractures. No axillary or supraclavicular adenopathy by size criteria. Thyroid gland is normal. Abdomen: Visualized upper abdominal solid organs and bowel loops appear normal in the absence of contrast. IMPRESSION: 1. Left lower lobe pneumonia, improved compared to 03/07/2022. Recommend continued follow-up to resolution. 2. Small left pleural effusion. 3. Mild mediastinal lymphadenopathy, which is nonspecific. 4. A couple of lung nodules in the right upper lobe. Recommend a follow-up CT in 3 months. Fleischner Society criteria for SOLID lung nodule followup. Nodule size (mm)Low-risk patientHigh-risk patient?4No follow-up neededFollow-up at 12 mo; if no change, no further follow-up>5-9Rmeshq-ep CT at 12 mo; if no change, no further follow-up needed.Initial follow-up CT at 6-12 mo, then 18-24 mo if no change. >6-8Initial follow-up CT at 6-12 mo, then 18-24 mo if no change. Initial follow-up CT at 3-6 mo, then 9-12 mo and 24 mo if no change. >8Follow-up CT at 3, 9, 24 mo. Or PET and/or biopsy.Same as for low-risk pts. Dictated by: Dhara Acuña M.D. on 03/12/2022 at 11:57 Approved by: Dhara Acuña M.D. on 03/12/2022 at 12:08
--- NOTE | 2022-03-12 11:19 | P.PN_ITS ---
Subjective Subjective Date Patient Seen: 03/12/22 Interval history: 46-year-old gentleman with history of IV drug abuse, Hepatitis C, and 22 pack year history of tobacco abuse who was admitted with left lower lobe pneumonia with associated hemoptysis. Patient reports he feels improved again today.? No further hemoptysis.?He states his phlegm remains easy to expectorate.? He continues to have pleuritic pain which he describes as severe. Continuing to use the flutter valve and IS and notes he can get it up to 1500 cc. He is on chronic opiate therapy with methadone 112.5 mg daily.? Since admission, he was placed on OxyContin 20 mg b.i.d. as well as oxycodone 20 mg q.4 hours.? He was happy to get velazquez w/his meal yesterday. Exam Vital Signs (past 8 hours): - 03/12/22 07:00 03/12/22 08:48 Temperature 97.0 F L Pulse Rate 80 Respiratory Rate 23 Blood Pressure 114/66 Pulse Oximetry 93 Oxygen Delivery Method Room Air Oxygen Flow Rate 0 Oxygen Delivery Method Room Air Oxygen Flow Rate 0 Narrative Exam Narrative: GEN: Alert and oriented x 3, appears more comfortable today HEENT:NC, Face symmetric CHEST: Respiratory excursions symmetric, persistent diminished breath sounds in the left base CV: RRR, no M/R/G ABD: Soft, NT/ND, BT present in all 4 quadrants, no organomegaly or masses EXTR: warm, well perfused, no C/C/, trace bilateral ankle edema SKIN: warm and dry, no rash NEURO: Alert and oriented x 3, nonfocal Objective Labs Result Diagrams: 03/10/22 05:39 03/10/22 05:39 [facility] Medical History Drug abuse, IV Hepatitis C History of bacterial pneumonia Marijuana use Smoker Family History (Updated 03/07/22 @ 15:04 by Maria Guadalupe Finney MD) Father Cancer Social History household members: none Smoking Status: Current every day smoker Assessment & Plan Assessment & Plan narrative: 1. Left lower lobe pneumonia with small pleural effusion Patient is expect rating much more easily today.? No further hemoptysis.? Continuing good pulmonary hygiene with frequent use of the flutter valve and spirometer.? He is ambulating the halls without difficulty.? Continues on b.i.d. Mucinex.? Remains on Rocephin as blood culture was positive for strep pneumo.? Sputum culture was not sent.? CXR is unchanged. Will obtain a CT today. If no effusion, may look to d/c home. If effusion has worsened, will pursue thorace ntesis. 2. Strep pneumonia bacteremia Initial culture revealed strep pneumonia.? F/u cultures pendiing. 3. Possible partially occluded left lower lobe bronchus Given his tobacco use history, certainly he is at higher risk for malignancy.? Will need f/u CT as an outpatient. 4. Polysubstance dependence He is presently on a methadone program.? Continue methadone 112.5 mg daily. 5. Pleuritic chest pain Improved with the adjustment to the as needed oxycodone 6. Nicotine dependence Continue nicotine patch Code status Full Prophylaxis Continue Lovenox Disposition Home discharge Time Spent With Patient Critical Care time: I spent a total of [] minutes of critical care time on this patient's care today; this time is exclusive of procedural time. Quality VTE Deep Vein Thrombosis/Pulmonary Embolism Present on Admission: No
[2022-03-12 12:42] LABS: Acinetobacter baumannii Not Detected (Not Detect); E. coli Not Detected (Not Detect); Enterobacter cloacae complex Not Detected (Not Detect); Enterobacteriaceae species Not Detected (Not Detect); Enterococcus species Not Detected (Not Detect); Listeria monocytogenes Not Detected (Not Detect); Methicillin-resistant gene Detected (Not Detect); Staphylococcus species Detected (Not Detect); Streptococcus agalactiae (Gr B Not Detected (Not Detect); Streptococcus pneumonia Not Detected (Not Detect); Streptococcus pyogenes (Gr A) Not Detected (Not Detect); Streptococcus species Not Detected (Not Detect)
[2022-03-12 12:43] LABS: Candida albicans Not Detected (Not Detect); Candida glabrata Not Detected (Not Detect); Candida krusei Not Detected (Not Detect); Candida parapsilosis Not Detected (Not Detect); Candida tropicalis Not Detected (Not Detect); Haemophilus influenzae Not Detected (Not Detect); Neisseria meningitidis Not Detected (Not Detect); Proteus species Not Detected (Not Detect); Pseudomonas aeruginosa Not Detected (Not Detect); Serratia marcescens Not Detected (Not Detect)
[2022-03-12] MEDS: VANCOMYCIN 1,250 MG/250 ML PIGGYBACK 250 MG IV ×2 (15:10→22:08)
[2022-03-12 17:25] VITALS: BP 117/74; PULSE 86; RESP 19; TEMP 36.2; O2SAT 96
[2022-03-12] MEDS: cefTRIAXone 2,000 MG in SODIUM CHLORIDE 0.9% 100 ML 100 MG IV (17:47)
--- NOTE | 2022-03-12 19:30 | PC.NURSE ---
+ blood cultures : strep. started vanco. peak and trough tomorrow per pharmacy. patient off floor for CT chest. patient reports increased pain w/ inspiration. encouraged to walk hallways more frequently. continue IS/flutter. did not ambulate more than once although stated he would walk. OOB to shower after supper. i get tired and i dont want to do anything but sleep. diminished breath sounds mostly on left side. contineus w/ PC w/ light yellow sputum. oxycodone 20mg given x 1 this shift.
[2022-03-12 20:36] VITALS: BP 126/80; PULSE 95; RESP 16; TEMP 36.4; O2SAT 94
[2022-03-12 22:14] VITALS: BP 115/65; PULSE 88; RESP 16; TEMP 36.6; O2SAT 97
--- NOTE | 2022-03-13 00:04 | PC.NURSE ---
Addendum entered by Janet Pena R.N. 03/13/22 07:07: Order for blood cultures obtained. Lab here and unable to find peripheral vein and patient declines to be a pin cushion. 1st set of blood cultures drawn from PICC at 0639 and 2nd set from other PICC port drawn at 0655. Vancomycin 0600 dose started late due to blood draws. Original Note: Patient is alert and oriented. Breath sounds are diminished throughout but especially in lower lobes; RA sat 94-97%. States he is coughing up minimal sputum and reports a brown/green color; feels he is not coughing up as much sputum as he was prior to initiation of Mucinex. States he is intermittently SOB. Encouraged to continue to walk TID and use I.S. and flutter valve which he states he has been doing. HRR. Denies nausea. BT present; reports he has been having loose stools possibly related to antibiotic use. Denies dysuria, frequency or urgency with urination. Independent with mobility but states he feels generalized weakness but is steady on feet. Continues to complain of chest and back pain related to cough and is being medicated with Oxycodone ER and IR. Refuses SCD's so reminded to ankle wave. Expresses discontent with not being able to get a good nights sleep related to staff having to do vitals, assessment and antibiotics. Fall risk score is moderate; bed alarm not indicated at this time.
[2022-03-13] MEDS: OXYCODONE IR 10 MG TABLET 20 MG PO ×3 (06:14→19:42)
[2022-03-13 06:34] VITALS: BP 104/68; PULSE 76; RESP 16; TEMP 36.2; O2SAT 97
[2022-03-13] MEDS: VANCOMYCIN 1,250 MG/250 ML PIGGYBACK 250 MG IV ×3 (07:03→21:30)
[2022-03-13 08:00] VITALS: BP 108/71; PULSE 86; RESP 17; TEMP 36.1; O2SAT 96
[2022-03-13] MEDS: ENOXAPARIN 40 MG/0.4 ML SYRINGE SUBCUT (08:18)
[2022-03-13] MEDS: NICOTINE 21 MG PATCH TOP (08:19)
[2022-03-13] MEDS: OXYCODONE ER 10 MG TAB 20 MG PO ×2 (08:19→21:29)
[2022-03-13] MEDS: METHADONE 5 MG TABLET 2.5 MG PO (08:19)
[2022-03-13] MEDS: guaiFENesin ER 600 MG TAB 1200 MG PO (08:20)
[2022-03-13] MEDS: LACTOBACILLUS ACIDOPHILUS TABLET 1 EACH PO ×3 (08:20→17:51)
[2022-03-13] MEDS: METHADONE 10 MG TABLET 110 MG PO (08:20)
[2022-03-13] MEDS: SODIUM CHLORIDE 0.9% FLUSH 10 ML IV ×2 (09:11→21:00)
--- NOTE | 2022-03-13 11:13 | PM.PN.1 ---
Subjective Subjective Date Patient Seen: 03/13/22 Interval history: 46-year-old gentleman with history of IV drug abuse, Hepatitis C, and 22 pack year history of tobacco abuse who was admitted with left lower lobe pneumonia with associated hemoptysis. Patient feeling ready to go home. He has been ambulating the halls w/o difficulty. Hemoptysis resolved. Sputum is easy to expectorate and decreasing in volume. Pleuritic pain is improving.? Continuing to use the flutter valve and IS and notes he can get it up to 1500 cc.? He is on chronic opiate therapy with methadone 112.5 mg daily.? Since admission, he was placed on OxyContin 20 mg b.i.d. as well as oxycodone 20 mg q.4 hours.? Exam Vital Signs (past 8 hours): - 03/13/22 06:34 03/13/22 08:00 Temperature 97.1 F L 97.0 F L Pulse Rate 76 86 Respiratory Rate 16 17 Blood Pressure 104/68 108/71 Pulse Oximetry 97 96 Oxygen Flow Rate 0 0 Oxygen Delivery Method Room Air Oxygen Flow Rate 0 Narrative Exam Narrative: GEN: Alert and oriented x 3, NAD HEENT:NC, Face symmetric CHEST: Respiratory excursions symmetric, persistent diminished breath sounds in the left base CV: RRR, no M/R/G ABD: Soft, NT/ND, BT present in all 4 quadrants, no organomegaly or masses EXTR: warm, well perfused, no C/C/E SKIN: warm and dry, no rash NEURO: Alert and oriented x 3, nonfocal Objective Labs Result Diagrams: 03/10/22 05:39 03/10/22 05:39 Labs: Laboratory Results - last 24 hr 03/11/22 14:30 A. baumannii (PCR) Not detected Zulma albicans (PCR) Not detected C. glabrata (PCR) Not detected C. krusei (PCR) Not detected C. parapsilosis (PCR) Not detected C. tropicalis (PCR) Not detected Enterobacteriac sp PCR Not detected E. cloacae complex PCR Not detected Enterococcus sp PCR Not detected E. coli (PCR) Not detected H. influenzae (PCR) Not detected Klebsiella oxytoca PCR Not detected Klebsiella pneumoniae Not detected List. monocytogenes PCR Not detected N. meningitidis (PCR) Not detected Proteus species (PCR) Not detected Serratia marcescens PCR Not detected Staphylococcus sp PCR Detected H Staph aureus (PCR) Not detected mecA-Methicil Res Gene Detected H Streptococcus sp PCR Not detected Group A Strep (PCR) Not detected Strep agalactiae (PCR) Not detected Strep pneumoniae (PCR) Not detected P. aeruginosa (PCR) Not detected Naseem/B-Vanco Res Genes Not Reportable KPC-Carbap Res Gene PCR Not Reportable PFSH Medical History Drug abuse, IV Hepatitis C History of bacterial pneumonia Marijuana use Smoker Family History (Updated 03/07/22 @ 15:04 by Maria Guadalupe Finney MD) Father Cancer Social History household members: none Smoking Status: Current every day smoker Assessment & Plan Assessment & Plan narrative: 1. Left lower lobe pneumonia with small pleural effusion Patient continues to improve.? No further hemoptysis.? Continuing good pulmonary hygiene with frequent use of the flutter valve and spirometer.? He is ambulating the halls without difficulty.? Continues on b.i.d. Mucinex.? Remains on Rocephin as blood culture was positive for strep pneumo.? Yeast from sputum, no need to treat.? CXR is unchanged.? CT showed improvement in pneumonia and effusion. 2. Strep pneumonia bacteremia Initial culture revealed strep pneumonia.? Resolved. 3. Staph bacteremia Blood culture from PICC line taken 03/11 reveals one positive for staph species (not aureus). Given it was from PICC line, Vanco was added back yesterday. Repeat cultures taken this am. Suspect contaminant, but will await f/u results. If cultures negative tomorrow, will d/c home. 4. RUL nodules Seen on CT chest yesterday. He is a smoker. Recommended he has 3 month f/u CT. 5. Polysubstance dependence He is presently on a methadone program.? Continue methadone 112.5 mg daily. 6. Pleuritic chest pain Improved with the adjustment to the as needed oxycodone. Would recommend discharge w/small # of oxycodone for pleuritic pain. 7. Nicotine dependence Continue nicotine patch Code status Full Prophylaxis Continue Lovenox Disposition Home discharge tomorrow if repeat BCs negative. Time Spent With Patient Critical Care time: I spent a total of [] minutes of critical care time on this patient's care today; this time is exclusive of procedural time. Quality VTE Deep Vein Thrombosis/Pulmonary Embolism Present on Admission: No
[2022-03-13 11:49] VITALS: BP 106/65; PULSE 78; RESP 16; TEMP 36.1; O2SAT 96
[2022-03-13] MEDS: VANCOMYCIN TROUGH 1 REQUEST MISC (14:35)
[2022-03-13 15:20] LABS: Vancomycin Trough 9.3 ug/mL (10-20)
[2022-03-13 15:46] VITALS: BP 123/65; PULSE 80; RESP 17; TEMP 35.9; O2SAT 96
[2022-03-13] MEDS: VANCOMYCIN PEAK 1 REQUEST MISC (17:51)
[2022-03-13] MEDS: cefTRIAXone 2,000 MG in SODIUM CHLORIDE 0.9% 100 ML 100 MG IV (17:51)
--- NOTE | 2022-03-13 18:27 | PC.NURSE ---
Pt is AxOx4, independent and cooperative. VSS, pt c/o pain L pleaural area and recieved PRN Oxy IR 20mg with good effect. Pt is also on Methadone. Pt is walking around the unit and using his IS very good as recommended. Vanco trough was 9.7 L, and Vanco Peak was drawn at 1750 bc of late medication given. Otherwise, no problem. Pt is eating well and sleeping between care. No other changes.
[2022-03-13 18:44] LABS: Vancomycin Peak 30.7 ug/mL (20-40)
[2022-03-13 19:22] VITALS: BP 124/71; PULSE 88; RESP 16; TEMP 36.2; O2SAT 97
[2022-03-14] MEDS: OXYCODONE IR 10 MG TABLET 20 MG PO ×2 (01:00→05:30)
[2022-03-14 04:43] VITALS: BP 113/72; PULSE 73; RESP 16; TEMP 36.1; O2SAT 99
--- NOTE | 2022-03-14 05:16 | PM.PN.1 ---
Subjective Subjective Date Patient Seen: 03/14/22 Time Patient Seen: 09:00 Interval history: Patient eager to leave. Feels well. Exam Vital Signs (past 8 hours): - 03/14/22 04:43 Temperature 97.0 F L Pulse Rate 73 Respiratory Rate 16 Blood Pressure 113/72 Pulse Oximetry 99 Oxygen Flow Rate 0 Oxygen Delivery Method Room Air Oxygen Flow Rate 0 Narrative Exam Narrative: GEN: Alert and oriented x 3, NAD. Anxious HEENT:NC, Face symmetric CHEST: Respiratory excursions symmetric, persistent diminished breath sounds in the left base CV: RRR, no M/R/G ABD: Soft, NT/ND, BT present in all 4 quadrants, no organomegaly or masses EXTR: warm, well perfused, no C/C/E SKIN: warm and dry, no rash NEURO: Alert and oriented x 3, nonfocal Objective Labs Result Diagrams: 03/10/22 05:39 03/10/22 05:39 Labs: Laboratory Results - last 24 hr 03/13/22 03/13/22 14:30 17:50 Vancomycin Peak 30.7 Vancomycin Trough 9.3 L PFSH Medical History Drug abuse, IV Hepatitis C History of bacterial pneumonia Marijuana use Smoker Family History Father Cancer Social History household members: none Smoking Status: Current every day smoker Assessment & Plan Assessment & Plan narrative: 1. Left lower lobe pneumonia with small pleural effusion Patient continues to improve.? No further hemoptysis.? Continuing good pulmonary hygiene with frequent use of the flutter valve and spirometer.? He is ambulating the halls without difficulty.? Continues on b.i.d. Mucinex.? Remains on Rocephin as blood culture was positive for strep pneumo.? Yeast from sputum, no need to treat.? CXR is unchanged.? CT showed improvement in pneumonia and effusion. Will continue IV abx as below for 7 additional days. 2. Strep pneumonia bacteremia Initial culture revealed strep pneumonia.?Repeat cultures NGTD. Needs 1 additional week of IV abx as he cannot take levaquin due to being on methadone. Spoke with Mimi LEIVA who recommended additional 7 days of IV rocephin. Working on outpatient IV infusion center for this as patient cannot have PICC due to prior IVDU only 2.5 years ago. 3. Staph bacteremia, resolved Blood culture from PICC line taken 03/11 reveals one positive for staph species (not aureus). Given it was from PICC line, Vanco was added back yesterday. Repeat cultures negative at 24 hours. Likely contaminant. 4. RUL nodules Seen on CT chest yesterday. He is a smoker. Recommended he has 3 month f/u CT. 5. Polysubstance dependence He is presently on a methadone program.? Continue methadone 112.5 mg daily. 6. Pleuritic chest pain Improved with the adjustment to the as needed oxycodone. Would recommend discharge w/small # of oxycodone for pleuritic pain. 7. Nicotine dependence Continue nicotine patch Code status Full Prophylaxis Continue Lovenox Disposition Home discharge today if IV infusion center can be setup. Time Spent With Patient Critical Care time: I spent a total of [] minutes of critical care time on this patient's care today; this time is exclusive of procedural time. Quality VTE Deep Vein Thrombosis/Pulmonary Embolism Present on Admission: No
[2022-03-14] MEDS: VANCOMYCIN 1,250 MG/250 ML PIGGYBACK 250 MG IV (05:30)
[2022-03-14] MEDS: LACTOBACILLUS ACIDOPHILUS TABLET 1 EACH PO ×2 (09:56→11:13)
[2022-03-14] MEDS: OXYCODONE ER 10 MG TAB 20 MG PO (09:56)
[2022-03-14] MEDS: ENOXAPARIN 40 MG/0.4 ML SYRINGE SUBCUT (09:57)
[2022-03-14] MEDS: METHADONE 5 MG TABLET 2.5 MG PO (09:57)
[2022-03-14] MEDS: METHADONE 10 MG TABLET 110 MG PO (09:58)
[2022-03-14] MEDS: guaiFENesin ER 600 MG TAB 1200 MG PO (09:59)
[2022-03-14] MEDS: NICOTINE 21 MG PATCH TOP (09:59)
[2022-03-14] MEDS: SODIUM CHLORIDE 0.9% FLUSH 10 ML IV (11:06)
[2022-03-14] MEDS: cefTRIAXone 2,000 MG in SODIUM CHLORIDE 0.9% 100 ML 200 MG IV (11:13)
--- NOTE | 2022-03-14 13:06 | PC.NURSE ---
pt leaving AMA. care management and Provider talked to this patient. pt left with PO antibiotic script. PICC dc'd tolerated well.
--- NOTE | 2022-03-14 13:24 | P.DS_ITS ---
History of Present Illness History of Present Illness Date Patient Seen: 03/14/22 Time Patient Seen: 13:00 Chief complaint: Coughing up blood Narrative: The patient is a 46-year-old male with a history of IV substance abuse, hepatitis-C, current 22 pack year history of tobacco/nicotine dependence who presents to the hospital with abrupt onset of shortness of breath, cough, productive sputum with hemoptysis.? The patient states his symptoms began 2 days ago.? Cause of his worsening shortness of breath and cough he presented for evaluation.? He does have a history of bacterial pneumonia about 7 years ago.? He denies any nausea vomiting or diarrhea.? He has had some chest pain associated with his cough.? He has had no hematemesis melena or bright red blood per rectum.? Patient denies any weight loss.? He does report some night sweats.? He had a PICC line placed in the ED. Patient reports significant chest pain since then. He underwent Chest Xray which confirmed Left Lower lobe consoidation. Patient had a CT of the Chest which demonstrated the following findgs: There is dense consolidation seen involving the majority of the left lower lobe.? The proximal left lower lobe bronchus appears narrowed versus occluded.? There is a small left-sided pleural effusion.? The right lung appears clear.? No pneumothorax is seen on either side. Patient is admitted for complicated Left Lower lobe Pneumonia, Respiratory Failure, and Nicotine dependence. Discharge Providers Provider Date of admission: 03/07/22 11:50 Discharge Date: 03/14/22 Consults: 03/07/22 13:22 Consult to Dietitian, Adult Routine Comment: Reason For Exam: Assessed as high risk Discharge provider: Lior Jackson DO Summary Hospital Course Discharge Diagnosis: 1. Left lower lobe pneumonia with small pleural effusion Patient continues to improve.? No further hemoptysis.? Continuing good pulmonary hygiene with frequent use of the flutter valve and spirometer.? He is ambulating the halls without difficulty.? Continues on b.i.d. Mucinex.? Remains on Rocephin as blood culture was positive for strep pneumo.? Yeast from sputum, no need to treat.? CXR is unchanged.? CT showed improvement in pneumonia and effusion. Will continue IV abx as below for 7 additional days. 2. Strep pneumonia bacteremia Initial culture revealed strep pneumonia.?Repeat cultures NGTD. Needs 1 additional week of IV abx as he cannot take levaquin due to being on methadone. Spoke with Mimi LEIVA who recommended additional 7 days of IV rocephin. Working on outpatient IV infusion center for this as patient cannot have PICC due to prior IVDU only 2.5 years ago. 3.? Staph bacteremia, resolved Blood culture from PICC line taken 03/11 reveals one positive for staph species (not aureus).? Given it was from PICC line, Vanco was added back yesterday.? Re peat cultures negative at 24 hours.? Likely contaminant. 4. RUL nodules Seen on CT chest yesterday.? He is a smoker.? Recommended he has 3 month f/u CT. 5. Polysubstance dependence He is presently on a methadone program.? Continue methadone 112.5 mg daily. 6. Pleuritic chest pain Improved with the adjustment to the as needed oxycodone.? Would recommend discharge w/small # of oxycodone for pleuritic pain.? 7. Nicotine dependence Continue nicotine patch Hospital Course: While attempting to work on getting patient set up for outpatient IV infusion, he left Against Medical Advice. I was able to print a script for oral cefdinir 300 mg twice daily for 7 days for him to take as the next best alternative. Patient took the prescription and then left. Exam Vital Signs (past 8 hours): - 03/14/22 09:56 Oxygen Delivery Method Room Air Oxygen Delivery Method Room Air Oxygen Flow Rate 0 Narrative Exam Narrative: GEN: Alert and oriented x 3, NAD. Anxious HEENT:NC, Face symmetric CHEST: Respiratory excursions symmetric, persistent diminished breath sounds in the left base CV: RRR, no M/R/G ABD: Soft, NT/ND, BT present in all 4 quadrants, no organomegaly or masses EXTR: warm, well perfused, no C/C/E SKIN: warm and dry, no rash NEURO: Alert and oriented x 3, nonfocal Objective Labs Result Diagrams: 03/10/22 05:39 03/10/22 05:39 Labs: Laboratory Results - last 24 hr 03/13/22 03/13/22 14:30 17:50 Vancomycin Peak 30.7 Vancomycin Trough 9.3 L PFSH Medical History Drug abuse, IV Hepatitis C History of bacterial pneumonia Marijuana use Smoker Family History Father Cancer Social History household members: none Smoking Status: Current every day smoker Discharge Plan Discharge Plan Patient Disposition: Left Against Medical Advice Discharge orders & Medications Prescriptions: New cefdinir 300 mg capsule 300 mg PO BID 7 Days Qty: 14 0RF Continued methadone 10 mg/mL Concentrate 113 mg PO DAILY Visit Report/Discharge Packet Instructions: Pneumonia-Adult Quality VTE Deep Vein Thrombosis/Pulmonary Embolism Present on Admission: No
== END 2022-03-14 13:04 | disposition left against medical advice (07) | DRG 139 ==
LOC: ED 11:27 → AC 11:51
PROVIDERS: Family Medicine; Admitting Provider Internal Medicine; Emergency Provider Emergency Medicine; Referring Provider Emergency Medicine; Visit Provider Internal Medicine
DX: J18.9 Pneumonia, unspecified organism (principal); J96.01 Acute respiratory failure with hypoxia; J90 Pleural effusion, not elsewhere classified; R04.2 Hemoptysis; F11.20 Opioid dependence, uncomplicated; F17.213 Nicotine dependence, cigarettes, with withdrawal; B95.3 Streptococcus pneumoniae as the cause of diseases classified elsewhere; R91.8 Other nonspecific abnormal finding of lung field; Z20.822 Contact with and (suspected) exposure to COVID-19; Z53.29 Procedure and treatment not carried out because of patient's decision for other reasons; R78.81 Bacteremia
CPT/HCPCS: 36415; 36569; 36592; 36600; 71046; 71250; 71275; 80048; 80053; 80202; 81001; 82550; 82805; 83605; 83735; 83880; 84145; 84484; 85007; 85025; 85379; 86140; 87040; 87070; 87077; 87147; 87150; 87186; 87205; 87635; 93005; 93010; 94762; 96365; 96366; 96368; 99285; C9803; J0295; J0696; J1170; J1642; J1650; J2543

== ENCOUNTER 2022-04-01 10:31 | Emergency (ER) | payer OTHER, MEDICAID, SELFPAY ==
[2022-03-07 13:05] VITALS: BMI 30.4
[2022-04-01] VITALS (10 sets, daily range): BP systolic 108–146; BP diastolic 53–87; PULSE 77–94; RESP 18–20; TEMP 35.9; O2SAT 95–97; BMI 29.7
--- NOTE | 2022-04-01 11:05 | DI.RAD.S_ITS ---
PROCEDURE: XR CHEST 1V INDICATIONS: chest pain TECHNIQUE: One view of the chest was acquired. COMPARISON: [facility], CR, XR CHEST FOR PICC 1V, 03/07/2022, 10:00. [facility], CR, XR CHEST 2V, 03/09/2022, 17:16. [facility], CT, CT CHEST WO CON, 03/12/2022, 11:21. [facility], CR, XR CHEST 2V, 03/12/2022, 8:36. FINDINGS: Surgical changes and devices: None. Lungs and pleura: From previous examination there is decreased size of now very small left-sided pleural effusion. Subtle left basilar opacity persists. No pneumothorax. Right lung is clear. Mediastinum: Mediastinal contours appear normal. Heart size is normal. Bones and chest wall: No suspicious bony lesions. Remote posttraumatic changes of the distal right clavicle. Overlying soft tissues appear unremarkable. IMPRESSION: Decreased size of left sided pleural effusion now very small in size . Persistent left basilar opacity. Dictated by: Rudy Rodriguez D.O. on 04/01/2022 at 10:47 Approved by: Rudy Rodriguez D.O. on 04/01/2022 at 10:50
[2022-04-01 11:50] LABS: Add Manual Diff / Slide Review NO; Basophils Absolute Auto 100 /uL (0-100); Basophils Percent Auto 1.3 % (0-2); Eosinophils Absolute Auto 300 /uL (0-450); Eosinophils Percent Auto 3.4 % (2-4); Hematocrit 33.5 % (41-53); Hemoglobin 11.1 g/dL (13.5-17.5); Lymphocytes Absolute Auto 1800 /uL (1100-4500); Mean Corpuscular HGB Conc 33.3 % (30-36); Mean Corpuscular Hemoglobin 28.1 PG (26-34); Mean Corpuscular Volume 84.6 fL (80-100); Monocytes Absolute Auto 1000 /uL (0-900); Monocytes Percent Auto 10.5 % (3-14); Neutrophils Absolute Auto 6300 /uL (1500-7000); Neutrophils Percent Auto 65.8 % (50-75); Platelet Count 346 X10^3/uL (150-400); Red Blood Cell Count 3.95 X10^6/uL (4.5-5.9); Red Cell Distribution Width 15.1 % (11.6-14.8); White Blood Cell Count 9.6 X10^3/uL (4.5-11.0)
[2022-04-01 12:03] LABS: Alanine Aminotransferase 50 IU/L (<50); Albumin 3.6 g/dL (3.5-5.0); Alkaline Phosphatase 124 U/L (38-126); Aspartate Aminotransferase 54 IU/L (17-59); BUN Creatinine Ratio 15.9 (6-22); Bilirubin Total 0.4 mg/dL (0.2-1.3); Blood Urea Nitrogen 13 mg/dL (9-20); Calcium 8.8 mg/dL (8.4-10.2); Carbon Dioxide 31 mmol/L (22-32); Chloride 103 mmol/L (98-107); Creatine Kinase 256 U/L (55-170); Estimated Glomerular Filt Rate > 60 mL/min (>60); Globulin 3.7 g/dL (1.7-4.1); Glucose 99 mg/dL (70-100); HEMOLYSIS < 15 (0-50); Lipase 27 U/L (23-300); Potassium 4.2 mmol/L (3.4-5.1); Sodium 137 mmol/L (137-145); Total Protein 7.3 g/dL (6.3-8.2)
[2022-04-01 12:05] LABS: COVID19 -Nasal RAPID Negative (Negative)
--- NOTE | 2022-04-01 12:05 | ED.SOB ---
HPI - SOB/Dyspnea General Chief Complaint: Shortness of Breath/Dyspnea Stated Complaint: sob swelling in legs burning splotches Time Seen by Provider: 04/01/22 12:01 Source: patient Mode of arrival: Ambulatory Limitations: no limitations History of Present Illness HPI Narrative: 46-year-old male, current smoker with of history hepatitis and IV drug use, presents emergency department with bilateral lower extremity swelling and redness since this morning. Patient reports previous admission for left lower lobe pneumonia from March 10-, and was discharged with oral cefdinir. Review of chart reveals that patient left Against Medical Advice while arranging outpatient IV antibiotics for 7 days. Physician prescribed the oral cefdinir as the best option due to patient's insistence on leaving Against Medical Advice. Patient reports that he is still experiencing left-sided chest pain when taking full breaths. Bilateral lower extremities with red splotches and 1+ swelling. Related Data Home Medications Medication Instructions Recorded Confirmed methadone 10 mg/mL oral concentrate 113 mg PO DAILY 03/08/22 03/08/22 Allergies Allergy/AdvReac Type Severity Reaction Status Date / Time No Known Allergies AdvReac Verified 03/07/22 13:26 Review of Systems Review of Systems Narrative: Narrative: GENERAL: Denies chills, fatigue, fever, sweats. See HPI HEENT: Denies sinus pain, ear pain, sore throat, difficulty swallowing, dizziness. RESPIRATORY: Denies dyspnea, cough, wheezing, sputum. CARDIOVASCULAR: Denies palpitations. GASTROINTESTINAL: Denies nausea, vomiting, abdominal pain, constipation. : Denies dysuria, frequency, incontinence, hematuria, urinary retention, flank pain. MSK: Denies weakness, joint pain, or bony pain. SKIN: Denies skin lesions, or pruritis. Endorses red splotchy rash to bilateral lower extremities. Left leg more swollen than right leg. NEUROLOGIC: Denies weakness, dizziness, headache, numbness, confusion. PSYCHIATRIC: No concerning psychosocial issues. History of polypharmacy use. Patient History Medical History Drug abuse, IV Hepatitis C History of bacterial pneumonia Marijuana use Smoker Family History Father Cancer Social History household members: none Smoking Status: Current every day smoker Smoking Status: Current every day smoker alcohol intake frequency: holidays/special occasions only Substance Use Type: marijuana Exam Narrative Exam Narrative: Exam Narrative: GENERAL: This is a well-nourished, well-developed patient, in no acute distress HEAD: Atraumatic. Normocephalic. EYES: Pupils equal round and reactive. Extraocular motions intact. No scleral icterus, injection or drainage. ENT: Nose without bleeding, purulent drainage. Airway patent. NECK: Trachea midline. No JVD or lymphadenopathy. Nontender. CARDIOVASCULAR: Regular rate and rhythm without murmurs, peripheral pulses intact, cap refill <2 sec. 1+ edema BLE. RESPIRATORY: Breath sounds equal and clear bilaterally. No wheezes, rales, or rhonchi. No cough. No increased respiratory effort. No accessory muscle use. GASTROINTESTINAL: Abdomen soft, non-tender, nondistended without guarding or rebound. No suprapubic pain. MSK: Moves all extremities. Normal range of motion, no clubbing or edema. Neurovascularly intact. NEURO: A&O x 3. SKIN: Warm, dry with red blotchy rash on bilateral lower extremities. Right calf measures 37.5 cm, right ankle 27 cm, left calf 38.5 cm, left calf 28 cm. Initial Vital Signs Initial Vital Signs: Vital Signs Temperature 96.6 F L 04/01/22 10:56 Pulse Rate 94 H 04/01/22 10:56 Respiratory Rate 20 04/01/22 10:56 Blood Pressure 146/76 H 04/01/22 10:56 Pulse Oximetry 97 04/01/22 10:56 Oxygen Delivery Method 04/01/22 10:56 Reviewed Scores Wells' Criteria for DVT Active Cancer (Treatment within 6 months): No Bedridden recently >3 days or major surgery within 4 weeks: No Calf Swelling >3cm compared to other leg: No Collateral (nonvericose) superficial veins present: No Entire leg swollen: No Localized tenderness along the deep vein system: No Pitting edema, confined to symtomatic leg: Yes Paralysis, paresis, or recent plaster immobilization of ext: No Previously documented DVT: No Alternative dx to DVT as likely or more likely: Yes Wells' criteria for DVT: -1 Course Orders Ordered: ED Orders 04/01/22 11:05 XR chest 1V Stat 04/01/22 11:12 EKG-12 Lead Stat 04/01/22 11:40 Complete Blood Count AUTO DIFF Stat Comprehensive Metabolic Panel Stat Lipase Stat Magnesium Stat Troponin & CK Cardiac Panel Stat 04/01/22 11:45 COVID19 -Nasal RAPID/Pre-Proc Stat 04/01/22 12:25 BNP [NT-proBNP (BNP-Adult 18+)] Stat Vital Signs Vital signs: Vital Signs - 8 hr 04/01/22 10:56 04/01/22 11:09 04/01/22 11:30 Temperature 96.6 F L Pulse Rate 94 H 92 H 88 Respiratory Rate 20 Blood Pressure 146/76 H Pulse Oximetry 97 96 96 Oxygen Delivery Method Room Air 04/01/22 12:00 04/01/22 12:31 04/01/22 12:37 Temperature Pulse Rate 87 77 Respiratory Rate Blood Pressure 111/53 L Pulse Oximetry 96 95 Oxygen Delivery Method 04/01/22 12:37 04/01/22 13:00 04/01/22 13:42 Temperature Pulse Rate 82 78 89 Respiratory Rate Blood Pressure Pulse Oximetry 97 97 96 Oxygen Delivery Method 04/01/22 13:43 04/01/22 13:43 Temperature Pulse Rate 84 Respiratory Rate Blood Pressure 141/87 H Pulse Oximetry 96 Oxygen Delivery Method MDM - SOB/Dyspnea Differential Diagnosis Differential diagnosis: Likely other (Bilateral lower extremity swelling) Lab Data Result diagrams: 04/01/22 11:40 04/01/22 11:40 Labs: Lab Results 04/01/22 04/01/22 04/01/22 Range/Units 11:40 11:40 11:40 WBC 9.6 (4.5-11.0) X10^3/uL RBC 3.95 L (4.5-5.9) X10^6/uL Hgb 11.1 L (13.5-17.5) g/dL Hct 33.5 L (41-53) % MCV 84.6 (80-100) fL MCH 28.1 (26-34) PG MCHC 33.3 (30-36) % RDW 15.1 H (11.6-14.8) % Plt Count 346 (150-400) X10^3/uL Neut % (Auto) 65.8 (50-75) % Lymph % (Auto) 19.0 L (25-40) % Lamb % (Auto) 10.5 (3-14) % Eos % (Auto) 3.4 (2-4) % Baso % (Auto) 1.3 (0-2) % Neut # (Auto) 6300 (4863-2778) /uL Lymph # (Auto) 1800 (8785-4772) /uL Lamb # (Auto) 1000 H (0-900) /uL Eos # (Auto) 300 (0-450) /uL Baso # (Auto) 100 (0-100) /uL Sodium 137 (137-145) mmol/L Potassium 4.2 (3.4-5.1) mmol/L Chloride 103 (98-107) mmol/L Carbon Dioxide 31 (22-32) mmol/L BUN 13 (9-20) mg/dL Creatinine 0.82 (0.66-1.25) mg/dL Estimated GFR > 60 (>60) mL/min BUN/Creatinine Ratio 15.9 (6-22) Glucose 99 (70-100) mg/dL Calcium 8.8 (8.4-10.2) mg/dL Magnesium 2.0 (1.6-2.3) mg/dL Total Bilirubin 0.4 (0.2-1.3) mg/dL AST 54 (17-59) IU/L ALT 50 H (<50) IU/L Alkaline Phosphatase 124 (38-126) U/L Total Creatine Kinase 256 H (55-170) U/L CK-MB (CK-2) 5.89 H (<2.37) ng/mL CK-MB (CK-2) Rel Index 2.3 (1.5-5.0) % Troponin I < 0.012 (0.01-0.034) ng/mL NT-Pro-B Natriuret Pep 121 (<125) pg/mL Total Protein 7.3 (6.3-8.2) g/dL Albumin 3.6 (3.5-5.0) g/dL Globulin 3.7 (1.7-4.1) g/dL Albumin/Globulin Ratio 1.0 (1.0-2.8) Lipase 27 (23-300) U/L SARS-CoV-2 (PCR) (Negative) 04/01/22 Range/Units 11:45 WBC (4.5-11.0) X10^3/uL RBC (4.5-5.9) X10^6/uL Hgb (13.5-17.5) g/dL Hct (41-53) % MCV (80-100) fL MCH (26-34) PG MCHC (30-36) % RDW (11.6-14.8) % Plt Count (150-400) X10^3/uL Neut % (Auto) (50-75) % Lymph % (Auto) (25-40) % Lamb % (Auto) (3-14) % Eos % (Auto) (2-4) % Baso % (Auto) (0-2) % Neut # (Auto) (9568-8301) /uL Lymph # (Auto) (4365-9430) /uL Lamb # (Auto) (0-900) /uL Eos # (Auto) (0-450) /uL Baso # (Auto) (0-100) /uL Sodium (137-145) mmol/L Potassium (3.4-5.1) mmol/L Chloride (98-107) mmol/L Carbon Dioxide (22-32) mmol/L BUN (9-20) mg/dL Creatinine (0.66-1.25) mg/dL Estimated GFR (>60) mL/min BUN/Creatinine Ratio (6-22) Glucose (70-100) mg/dL Calcium (8.4-10.2) mg/dL Magnesium (1.6-2.3) mg/dL Total Bilirubin (0.2-1.3) mg/dL AST (17-59) IU/L ALT (<50) IU/L Alkaline Phosphatase (38-126) U/L Total Creatine Kinase (55-170) U/L CK-MB (CK-2) (<2.37) ng/mL CK-MB (CK-2) Rel Index (1.5-5.0) % Troponin I (0.01-0.034) ng/mL NT-Pro-B Natriuret Pep (<125) pg/mL Total Protein (6.3-8.2) g/dL Albumin (3.5-5.0) g/dL Globulin (1.7-4.1) g/dL Albumin/Globulin Ratio (1.0-2.8) Lipase (23-300) U/L SARS-CoV-2 (PCR) Negative (Negative) Imaging Data Chest x-ray: Radiologist's Impression: [address] [address] XRay Report Signed Patient: Panda Purdy MR#: [id number] : 1975 Acct:[id number] Age/Sex: 46 / M Date of Service: 04/01/22 Loc: ED Accession Number: [id number] ?? Procedure: XR chest 1V Ordering Provider: Dung King MD PROCEDURE:? XR CHEST 1V ? INDICATIONS:? chest pain ? TECHNIQUE:? One view of the chest was acquired.? ? COMPARISON:? [facility], CR, XR CHEST FOR PICC 1V, 03/07/2022, 10:00.? [facility], CR, XR CHEST 2V, 03/09/2022, 17:16.? [facility], CT, CT CHEST WO CON, 03/12/2022, 11:21.? [facility], CR, XR CHEST 2V, 03/12/2022, 8:36. ? FINDINGS:? ? Surgical changes and devices:? None.? ? Lungs and pleura:? From previous examination there is decreased size of now very small? left-sided pleural effusion.? Subtle left basilar opacity persists.? No pneumothorax.? Right lung is clear. ? Mediastinum:? Mediastinal contours appear normal.? Heart size is normal.? ? Bones and chest wall:? No suspicious bony lesions.? Remote posttraumatic changes of the distal right clavicle.? Overlying soft tissues appear unremarkable.? ? IMPRESSION:? ? ? Decreased size of left sided pleural effusion now very small in size .? Persistent left basilar opacity.? ? Dictated by: Rudy Rodriguez D.O. on 04/01/2022 at 10:47 ? ? Approved by: Rudy Rodriguez D.O. on 04/01/2022 at 10:50 ? MDM Narrative Medical decision making narrative: 46-year-old male, smoker with history pneumonia and hepatitis, presents to the emergency department with bilateral lower extremity redness and swelling x1 day. Wells score -1 shows very low probability of a DVT. Labs all within acceptable limits. Consideration for pneumonia, CHF, DVT, PE ruled out. Recommend patient continue taking his cefdinir at home along with aggressive elevation of his legs to get the swelling down. Instructed patient to follow-up with his family doctor this week without fail. Discussed return precautions with patient, who is agreeable to course of action. Discharge Plan Departure Patient Disposition: Home Clinical Impression: Swelling of both lower extremities Activity Restrictions/Additional Instructions: *You have been diagnosed with bilateral lower extremity swelling. I am not sure what is causing your redness and swelling, but we have ruled out a heart attack, congestive heart failure, pulmonary embolism, DVT, pneumonia. I recommend you complete your regimen of antibiotics as well as staying hydrated and elevating your legs above your heart as much as possible over the next few days. Please follow-up with your family doctor within the next 48 hours. If symptoms worsen, you may return to the emergency department. *What to do: *Please continue to take your regular medications as directed. [ ] New medication prescriptions sent to your pharmacy: [ ] [ ] New medication written as a paper prescription [x ] No new medications given *Please follow up with your primary care provider in 2-3 days, call for an appointment. Let them know you were seen in the Emergency Department and that we ask that you be seen in follow up. We will electronically transmit a record of today's note if your PCP is in our system *If you do not have a primary care provider please contact the [facility] Resource line at [phone]. They will ask some questions about your medical history and help get you set up with a doctor in the community. ? Return to ER if you should have any new, worsening or concerning symptoms, such as worsening pain, severe headache, confusion, chest pain, difficulty breathing, fever greater than 101 F, shaking chills, persistent vomiting to the point that you cannot drink fluids, or other new or worsening symptoms. Prescriptions: No Action methadone 10 mg/mL Concentrate 113 mg PO DAILY
[2022-04-01 12:13] LABS: Troponin I < 0.012 ng/mL (0.01-0.034)
[2022-04-01 12:18] LABS: CKMB % Relative Index 2.3 % (1.5-5.0); Creatine Kinase MB 5.89 ng/mL (<2.37)
[2022-04-01 12:48] LABS: NT-proBNP (BNP-Adult 18+) 121 pg/mL (<125)
== END 2022-04-01 14:24 | disposition home or self-care (01) ==
PROVIDERS: Family Medicine Addiction Medicine; Emergency Provider Registered Nurse
DX: M79.89 Other specified soft tissue disorders (principal); R07.9 Chest pain, unspecified; Z20.822 Contact with and (suspected) exposure to COVID-19
CPT/HCPCS: 36415; 71045; 80053; 82550; 82553; 83690; 83735; 83880; 84484; 85025; 87635; 93005; 93010; 99283; 99284; C9803